=== PATIENT | male | born 1940 | race Caucasian/White ===

== ENCOUNTER 2019-10-03 13:41 | Emergency (ER) | payer OTHER ==
[~2019-10-03] VITALS: Ht 182.9 cm; Wt 99.8 kg
[~2019-10-03 13:41] MED LIST: CEPH500 PO; CHOL10002; GABA300 PO; Glimepiride4 MG PO; INSDET100 SC; INSU100I6; INSULANPEN SC; LEVEMIR FL100 UNIT/1 SC; LIRA0.6P SC; Lisinopril2.5 MG; Lisinopril2.5 MG PO; PRAV20 PO
[2019-10-03] MEDS ORDERED: ALLO100 PO (13:52)
[2019-10-03] MEDS ORDERED: VITAMIN D-32000 UNIT PO (13:53)
[2019-10-03] MEDS ORDERED: GABA300 PO (13:53)
[2019-10-03] MEDS ORDERED: INSULIN AS100 UNIT/2 SC ×3 (13:54→13:57)
[2019-10-03] MEDS ORDERED: BASAGLAR K100 UNIT/1 SC (13:57)
[2019-10-03] MEDS ORDERED: LEVSOD25 PO (13:57)
[2019-10-03] MEDS ORDERED: Lisinopril2.5 MG PO (14:00)
[2019-10-03] MEDS ORDERED: PRAV20 PO (14:01)
[2019-10-03] MEDS ORDERED: [UNRECOGNIZED DRUG - OTHER] TOP (15:24)
== END 2019-10-03 17:09 | disposition home or self-care (01) ==
LOC: ER 13:41
DX: L89.152 Pressure ulcer of sacral region, stage 2 (principal); I12.9 Hypertensive chronic kidney disease with stage 1 through stage 4 chronic kidney disease, or unspecified chronic kidney disease; E11.22 Type 2 diabetes mellitus with diabetic chronic kidney disease; N18.4 Chronic kidney disease, stage 4 (severe); E11.40 Type 2 diabetes mellitus with diabetic neuropathy, unspecified; Z79.899 Other long term (current) drug therapy; Z79.4 Long term (current) use of insulin; Z87.891 Personal history of nicotine dependence
CPT/HCPCS: 72192; 99284-25

== ENCOUNTER 2019-10-12 00:09 | Day surgery (SDC) | payer OTHER ==
[~2019-10-12 00:09] MED LIST changes: +ALLO100 PO; +BASAGLAR K100 UNIT/1 SC; +INSULIN AS100 UNIT/2 SC; +LEVSOD25 PO; +VITAMIN D-32000 UNIT PO; +[UNRECOGNIZED DRUG - OTHER] TOP
== END 2019-10-12 22:44 | disposition home or self-care (01) ==
DX: L89.154 Pressure ulcer of sacral region, stage 4 (principal); L89.892 Pressure ulcer of other site, stage 2; E11.22 Type 2 diabetes mellitus with diabetic chronic kidney disease; E11.40 Type 2 diabetes mellitus with diabetic neuropathy, unspecified; I12.9 Hypertensive chronic kidney disease with stage 1 through stage 4 chronic kidney disease, or unspecified chronic kidney disease; E78.5 Hyperlipidemia, unspecified; N18.4 Chronic kidney disease, stage 4 (severe); Z79.4 Long term (current) use of insulin; Z88.8 Allergy status to other drugs, medicaments and biological substances; Z87.891 Personal history of nicotine dependence

== ENCOUNTER 2019-10-19 00:21 | Day surgery (SDC) | payer OTHER | END 2019-10-19 22:43 | disposition home or self-care (01) | LOC: WOUND 00:21 | DX: E11.622 Type 2 diabetes mellitus with other skin ulcer (principal); L89.154 Pressure ulcer of sacral region, stage 4; L89.892 Pressure ulcer of other site, stage 2; L98.499 Non-pressure chronic ulcer of skin of other sites with unspecified severity; E11.40 Type 2 diabetes mellitus with diabetic neuropathy, unspecified; E11.22 Type 2 diabetes mellitus with diabetic chronic kidney disease; I12.9 Hypertensive chronic kidney disease with stage 1 through stage 4 chronic kidney disease, or unspecified chronic kidney disease; N18.9 Chronic kidney disease, unspecified; E78.5 Hyperlipidemia, unspecified; Z79.4 Long term (current) use of insulin; Z79.899 Other long term (current) drug therapy | CPT/HCPCS: 87071; 87075; 87076; 87185; 87205 ==

== ENCOUNTER 2019-10-26 00:18 | Day surgery (SDC) | payer OTHER | END 2019-10-26 22:53 | disposition home or self-care (01) | LOC: WOUND 00:18 | DX: E11.622 Type 2 diabetes mellitus with other skin ulcer (principal); L89.154 Pressure ulcer of sacral region, stage 4; L89.892 Pressure ulcer of other site, stage 2; I12.0 Hypertensive chronic kidney disease with stage 5 chronic kidney disease or end stage renal disease; E11.22 Type 2 diabetes mellitus with diabetic chronic kidney disease; N18.9 Chronic kidney disease, unspecified; E78.5 Hyperlipidemia, unspecified; E11.40 Type 2 diabetes mellitus with diabetic neuropathy, unspecified; Z79.4 Long term (current) use of insulin; Z79.899 Other long term (current) drug therapy ==

== ENCOUNTER 2019-11-02 00:17 | Day surgery (SDC) | payer OTHER | END 2019-11-02 22:47 | disposition home or self-care (01) | LOC: WOUND 00:17 | DX: E11.622 Type 2 diabetes mellitus with other skin ulcer (principal); L89.154 Pressure ulcer of sacral region, stage 4; L89.892 Pressure ulcer of other site, stage 2; I12.9 Hypertensive chronic kidney disease with stage 1 through stage 4 chronic kidney disease, or unspecified chronic kidney disease; E11.22 Type 2 diabetes mellitus with diabetic chronic kidney disease; N18.9 Chronic kidney disease, unspecified; E78.5 Hyperlipidemia, unspecified | CPT/HCPCS: G0463 ==

== ENCOUNTER 2019-11-09 00:37 | Day surgery (SDC) | payer OTHER | END 2019-11-09 23:14 | disposition home or self-care (01) | LOC: WOUND 00:37 | DX: E11.622 Type 2 diabetes mellitus with other skin ulcer (principal); L89.154 Pressure ulcer of sacral region, stage 4; L89.892 Pressure ulcer of other site, stage 2; I12.9 Hypertensive chronic kidney disease with stage 1 through stage 4 chronic kidney disease, or unspecified chronic kidney disease; N18.9 Chronic kidney disease, unspecified; E11.22 Type 2 diabetes mellitus with diabetic chronic kidney disease; E78.5 Hyperlipidemia, unspecified; N31.9 Neuromuscular dysfunction of bladder, unspecified ==

== ENCOUNTER 2019-11-16 00:08 | Day surgery (SDC) | payer OTHER | END 2019-11-16 23:01 | disposition home or self-care (01) | LOC: WOUND 00:08 | DX: L89.154 Pressure ulcer of sacral region, stage 4 (principal); L89.892 Pressure ulcer of other site, stage 2; E11.622 Type 2 diabetes mellitus with other skin ulcer; E78.5 Hyperlipidemia, unspecified; I12.0 Hypertensive chronic kidney disease with stage 5 chronic kidney disease or end stage renal disease; N18.6 End stage renal disease; E11.22 Type 2 diabetes mellitus with diabetic chronic kidney disease ==

== ENCOUNTER 2020-01-11 00:25 | Day surgery (SDC) | payer OTHER | END 2020-01-11 22:39 | disposition home or self-care (01) | LOC: WOUND 00:25 | DX: L89.154 Pressure ulcer of sacral region, stage 4 (principal); E11.622 Type 2 diabetes mellitus with other skin ulcer; L98.499 Non-pressure chronic ulcer of skin of other sites with unspecified severity; Z79.4 Long term (current) use of insulin ==

== ENCOUNTER 2020-01-13 00:11 | Day surgery (SDC) | payer OTHER | END 2020-01-13 22:48 | disposition home or self-care (01) | LOC: WOUND 00:11 | DX: L89.154 Pressure ulcer of sacral region, stage 4 (principal); E11.622 Type 2 diabetes mellitus with other skin ulcer ==

== ENCOUNTER 2020-01-25 00:34 | Day surgery (SDC) | payer OTHER | END 2020-01-25 23:21 | disposition home or self-care (01) | LOC: WOUND 00:34 | DX: L89.154 Pressure ulcer of sacral region, stage 4 (principal); E11.622 Type 2 diabetes mellitus with other skin ulcer; E11.40 Type 2 diabetes mellitus with diabetic neuropathy, unspecified; E11.22 Type 2 diabetes mellitus with diabetic chronic kidney disease; I12.9 Hypertensive chronic kidney disease with stage 1 through stage 4 chronic kidney disease, or unspecified chronic kidney disease; E78.5 Hyperlipidemia, unspecified; Z79.4 Long term (current) use of insulin; Z79.899 Other long term (current) drug therapy ==

== ENCOUNTER 2020-02-01 00:39 | Day surgery (SDC) | payer OTHER | END 2020-02-01 22:42 | disposition home or self-care (01) | LOC: WOUND 00:39 | DX: L89.154 Pressure ulcer of sacral region, stage 4 (principal); E11.622 Type 2 diabetes mellitus with other skin ulcer; E11.22 Type 2 diabetes mellitus with diabetic chronic kidney disease; E11.40 Type 2 diabetes mellitus with diabetic neuropathy, unspecified; I12.9 Hypertensive chronic kidney disease with stage 1 through stage 4 chronic kidney disease, or unspecified chronic kidney disease; N18.9 Chronic kidney disease, unspecified; E78.5 Hyperlipidemia, unspecified; Z79.4 Long term (current) use of insulin; L98.499 Non-pressure chronic ulcer of skin of other sites with unspecified severity; Z79.899 Other long term (current) drug therapy | CPT/HCPCS: 87071; 87075; 87205 ==

== ENCOUNTER 2020-02-10 00:25 | Day surgery (SDC) | payer OTHER | END 2020-02-10 22:41 | disposition home or self-care (01) | LOC: WOUND 00:25 | DX: L89.154 Pressure ulcer of sacral region, stage 4 (principal); E11.622 Type 2 diabetes mellitus with other skin ulcer; L98.499 Non-pressure chronic ulcer of skin of other sites with unspecified severity; E11.40 Type 2 diabetes mellitus with diabetic neuropathy, unspecified; E11.22 Type 2 diabetes mellitus with diabetic chronic kidney disease; I12.9 Hypertensive chronic kidney disease with stage 1 through stage 4 chronic kidney disease, or unspecified chronic kidney disease; E78.5 Hyperlipidemia, unspecified; N18.9 Chronic kidney disease, unspecified; Z79.4 Long term (current) use of insulin; Z79.899 Other long term (current) drug therapy ==

== ENCOUNTER 2020-02-27 00:22 | Day surgery (SDC) | payer OTHER ==
[2020-02-27 10:59] LABS: BASOPHILS ABSOLUTE AUTO 0.04 K/mm3 (0.00-0.23); BASOPHILS PERCENT AUTO 0 % (0-2); EOSINOPHILS ABSOLUTE AUTO 0.16 K/mm3 (0.00-0.68); EOSINOPHILS PERCENT AUTO 2 % (0-6); Hematocrit 37.7 % (37.0-53.0); Hemoglobin 12.2 g/dL (13.5-17.5); IMMATURE GRAN ABSOLUTE AUTO 0.01 K/mm3 (0.00-0.10); IMMATURE GRAN PERCENT AUTO 0 % (0-1); LYMPHOCYTES ABSOLUTE AUTO 1.43 K/mm3 (0.84-5.20); LYMPHOCYTES PERCENT AUTO 16 % (21-46); MONOCYTES ABSOLUTE AUTO 0.72 K/mm3 (0.16-1.47); MONOCYTES PERCENT AUTO 8 % (4-13); Mean Corpuscular HGB 31.3 pg (26.0-34.0); Mean Corpuscular HGB Conc 32.4 g/dL (31.5-36.5); Mean Corpuscular Volume 97 fL (80-100); Mean Platelet Volume 9.3 fL (9.1-12.4); NEUTROPHILS ABSOLUTE AUTO 6.86 K/mm3 (1.96-9.15); NEUTROPHILS PERCENT AUTO 75 % (41-73); Platelet Count 297 K/mm3 (150-400); RDW Coefficient Variation 12.1 % (11.7-14.2); White Blood Cell Count 9.22 K/mm3 (4.00-11.30)
[2020-02-27 11:26] LABS: Albumin, Blood 2.9 g/dL (3.4-5.0); Prealbumin, Blood 15.4 mg/dL (20.0-40.0)
== END 2020-02-27 22:48 | disposition home or self-care (01) ==
LOC: WOUND 00:22
PROVIDERS: Surgery
DX: L89.154 Pressure ulcer of sacral region, stage 4 (principal); E11.622 Type 2 diabetes mellitus with other skin ulcer; E11.40 Type 2 diabetes mellitus with diabetic neuropathy, unspecified; E11.22 Type 2 diabetes mellitus with diabetic chronic kidney disease; I12.9 Hypertensive chronic kidney disease with stage 1 through stage 4 chronic kidney disease, or unspecified chronic kidney disease; L98.499 Non-pressure chronic ulcer of skin of other sites with unspecified severity; N18.9 Chronic kidney disease, unspecified; E78.5 Hyperlipidemia, unspecified; Z79.4 Long term (current) use of insulin; Z79.899 Other long term (current) drug therapy
CPT/HCPCS: 82040; 84134; 85025

== ENCOUNTER 2020-03-05 00:26 | Day surgery (SDC) | payer OTHER | END 2020-03-05 23:00 | disposition home or self-care (01) | LOC: WOUND 00:26 | DX: I96 Gangrene, not elsewhere classified (principal); L89.154 Pressure ulcer of sacral region, stage 4; L89.312 Pressure ulcer of right buttock, stage 2; E11.52 Type 2 diabetes mellitus with diabetic peripheral angiopathy with gangrene; I12.0 Hypertensive chronic kidney disease with stage 5 chronic kidney disease or end stage renal disease; E11.22 Type 2 diabetes mellitus with diabetic chronic kidney disease; N18.6 End stage renal disease; E11.40 Type 2 diabetes mellitus with diabetic neuropathy, unspecified; E78.5 Hyperlipidemia, unspecified; M10.9 Gout, unspecified; N31.9 Neuromuscular dysfunction of bladder, unspecified; E11.36 Type 2 diabetes mellitus with diabetic cataract; H26.9 Unspecified cataract; Z79.4 Long term (current) use of insulin; Z79.899 Other long term (current) drug therapy ==

== ENCOUNTER 2020-03-10 01:32 | Inpatient (IN) | payer OTHER, MEDICARE ==
[~2020-03-10] VITALS: Ht 182.9 cm; Wt 104.3 kg
[2020-03-10] MEDS ORDERED: Norco 5-325 Ta1 EACH PO (01:50)
[2020-03-10] MEDS ORDERED: NOVOLOG FL100 UNIT/3 (01:51)
[2020-03-10 02:06] LABS: BASOPHILS ABSOLUTE AUTO 0.03 K/mm3 (0.00-0.23); BASOPHILS PERCENT AUTO 0 % (0-2); EOSINOPHILS PERCENT AUTO 0 % (0-6); Hemoglobin 11.4 g/dL (13.5-17.5); IMMATURE GRAN ABSOLUTE AUTO 0.11 K/mm3 (0.00-0.10); IMMATURE GRAN PERCENT AUTO 1 % (0-1); LYMPHOCYTES ABSOLUTE AUTO 0.43 K/mm3 (0.84-5.20); LYMPHOCYTES PERCENT AUTO 3 % (21-46); MONOCYTES ABSOLUTE AUTO 0.85 K/mm3 (0.16-1.47); MONOCYTES PERCENT AUTO 6 % (4-13); Mean Corpuscular HGB 30.6 pg (26.0-34.0); Mean Corpuscular HGB Conc 32.6 g/dL (31.5-36.5); Mean Corpuscular Volume 94 fL (80-100); Mean Platelet Volume 9.6 fL (9.1-12.4); NEUTROPHILS ABSOLUTE AUTO 11.76 K/mm3 (1.96-9.15); NEUTROPHILS PERCENT AUTO 89 % (41-73); Platelet Count 288 K/mm3 (150-400); RDW Coefficient Variation 12.4 % (11.7-14.2); Red Blood Cell Count 3.73 M/mm3 (4.30-5.90); White Blood Cell Count 13.18 K/mm3 (4.00-11.30)
[2020-03-10 02:12] LABS: Alanine Aminotransfer (ALT/SGP 64 U/L (12-78); Albumin, Blood 2.7 g/dL (3.4-5.0); Albumin/Globulin Ratio 0.4 (0.8-1.8); Alk Phos 130 U/L (50-136); Anion Gap 8 mmol/L (6-16); Aspartate Aminotrans (AST/SGOT 67 U/L (12-37); Bilirubin, Total 0.5 mg/dL (0.1-1.0); Blood Urea Nitrogen 71 mg/dL (8-24); Bun/Creatinine Ratio 36.4 (12.0-20.0); CO2, Blood 22 mmol/L (21-32); Chloride, Blood 101 mmol/L (98-108); Creatinine, Blood 1.95 mg/dL (0.60-1.20); Globulin, Blood 6.3 g/dL (2.2-4.0); Glomerular Filtration Rate 36 (60-); Glucose, Blood 216 mg/dL (70-99); Potassium, Blood 4.8 mmol/L (3.5-5.5); Sodium, Blood 131 mmol/L (136-145)
[2020-03-10 02:47] LABS: Source, Urine Catheter
[2020-03-10 02:58] LABS: Bilirubin, Urine Neg (Neg); Blood, Urine 2+ (Neg); Glucose Qualitative, Urine Neg (Neg); Ketones, Urine Neg (Neg); Leukocyte Esterase, Urine 2+ (Neg); Nitrite, Urine Neg (Neg); Protein, Urine 1+ (Neg); Specific Gravity, Urine 1.015 (1.003-1.022); Urobilinogen, Urine NORM (Normal)
[2020-03-10 03:06] LABS: Appearance, Urine Hazy (Clear); Color, Urine Yellow (P-Yellow)
[2020-03-10 03:07] LABS: Bacteria Many /hpf; Red Blood Cells, Urine Rare /hpf (0-2); Squamous Epithelial Cells Rare /hpf (Few); White Blood Cells, Urine 50-100 /hpf (0-5)
[2020-03-10 03:50] LABS: CPK Creatine Kinase 77 U/L (39-308)
[2020-03-10 03:51] LABS: Creatine Kinase MB <1.0 ng/mL (0.0-3.6); Creatine Kinase MB Index Unable to Calculate (0.0-4.0)
[2020-03-10 11:40] LABS: Adenovirus Not Detected (NOT DETECT); Bordetella pertussis Not Detected (NOT DETECT); Chlamydophila pneumoniae Not Detected (NOT DETECT); Coronavirus 229E Not Detected (NOT DETECT); Coronavirus HKU1 Not Detected (NOT DETECT); Coronavirus NL63 Not Detected (NOT DETECT); Coronavirus OC43 Not Detected (NOT DETECT); Human Metapneumovirus Not Detected (NOT DETECT); Human Rhinovirus/Enterovirus Not Detected (NOT DETECT); Influenza A/2009-H1 Not Detected (NOT DETECT); Influenza A/H1 Not Detected (NOT DETECT); Influenza A/H3 Not Detected (NOT DETECT); Influenza B Not Detected (NOT DETECT); Mycoplasma pneumoniae Not Detected (NOT DETECT); Parainfluenza Virus 1 Not Detected (NOT DETECT); Parainfluenza Virus 2 Not Detected (NOT DETECT); Parainfluenza Virus 3 Not Detected (NOT DETECT); Parainfluenza Virus 4 Not Detected (NOT DETECT); Respiratory Syncytial Virus Not Detected (NOT DETECT); SARS-Cov-2 (COVID-19), BioFire Not Detected (NOT DETECT)
--- NOTE | 2020-03-11 03:31 | NUR ---
SHIFT SUMMARY: 80 Y/O MALE RESTED COMFORTABLY ALL SHIFT; PT C/O PAIN TO COCCYX RATED 7/10 WITH NORCO 5/325MG PO GIVEN WITH RELIEF FELT; COCCYX WOUND DRESSING DRY AND INTACT; ALERT AND ORIENTED X 3; PT ABLE TO PERFORM SELF CATHETERIZATIONS WITHOUT DIFFICUTLY; DENIES NAUSEA; BED ALARM APPLIED FOR SAFETY, BED LOW POSITION WITH CALL LIGHT AT SIDE.
[2020-03-11 05:35] LABS: BASOPHILS ABSOLUTE AUTO 0.03 K/mm3 (0.00-0.23); BASOPHILS PERCENT AUTO 0 % (0-2); EOSINOPHILS ABSOLUTE AUTO 0.17 K/mm3 (0.00-0.68); EOSINOPHILS PERCENT AUTO 2 % (0-6); Hematocrit 30.7 % (37.0-53.0); Hemoglobin 9.9 g/dL (13.5-17.5); IMMATURE GRAN ABSOLUTE AUTO 0.04 K/mm3 (0.00-0.10); IMMATURE GRAN PERCENT AUTO 1 % (0-1); LYMPHOCYTES ABSOLUTE AUTO 1.37 K/mm3 (0.84-5.20); LYMPHOCYTES PERCENT AUTO 18 % (21-46); MONOCYTES ABSOLUTE AUTO 0.99 K/mm3 (0.16-1.47); MONOCYTES PERCENT AUTO 13 % (4-13); Mean Corpuscular HGB 30.7 pg (26.0-34.0); Mean Corpuscular HGB Conc 32.2 g/dL (31.5-36.5); Mean Corpuscular Volume 95 fL (80-100); Mean Platelet Volume 9.6 fL (9.1-12.4); NEUTROPHILS ABSOLUTE AUTO 4.85 K/mm3 (1.96-9.15); NEUTROPHILS PERCENT AUTO 65 % (41-73); Platelet Count 234 K/mm3 (150-400); RDW Coefficient Variation 12.4 % (11.7-14.2); RDW Standard Deviation 43.6 fL (35.1-46.3); Red Blood Cell Count 3.22 M/mm3 (4.30-5.90); White Blood Cell Count 7.45 K/mm3 (4.00-11.30)
[2020-03-11 05:57] LABS: Albumin, Blood 2.3 g/dL (3.4-5.0); Albumin/Globulin Ratio 0.4 (0.8-1.8); Bilirubin, Total 0.4 mg/dL (0.1-1.0); Calcium, Blood 8.7 mg/dL (8.5-10.1); Creatinine, Blood 1.73 mg/dL (0.60-1.20); Globulin, Blood 5.5 g/dL (2.2-4.0); Potassium, Blood 4.6 mmol/L (3.5-5.5); Total Protein, Blood 7.8 g/dL (6.4-8.2)
--- NOTE | 2020-03-11 08:29 | NUR ---
REPOSITIONED FOWLERS FOR BREAKFAST, VITALS TAKEN, CALL LIGHT IN REACH.
--- NOTE | 2020-03-11 16:17 | NUR ---
SHIFT SUMMARY PATIENT MEDICATED X2 FOR PAIN THIS SHIFT. DENIES NAUSEA AND SHORTNESS OF BREATH. PATIENT REPOSITIONED TWO ASSIST IN BED. POOR PO INTAKE. PATIENT SELF CATHETERIZES TID. WOUND CARE COMPLETED. AT BEDSIDE THIS AFTERNOON.
--- NOTE | 2020-03-12 04:20 | NUR ---
SHIFT SUMMARY: PT IS ALERT AND ORIENTED. PT IS CALM AND COOPERATIVE WITH CARE. PT IS CHAIRBOUND AT BASELINE, NOT OUT OF BED OVERNIGHT. PT CALLS APPROPRIATELY. PT SELF CATHS FOR RETENTION R/T NEUROGENIC BLADDER, ASSISTANCE WHEN NEEDED. PT REPORTS PAIN R/T CHRONIC SACRAL WOUND, MEDICATING PER EMAR. PT DENIES NAUSEA, VOMITING, AND SOB. BED IN LOW POSITION, CALL LIGHT WITHIN REACH. WILL CONTINUE TO MONITOR.
--- NOTE | 2020-03-12 17:09 | NUR ---
SHIFT SUMMARY. A&OX4, CHAIRBOUND AT BASELINE. PER PHYSICAL THERAPY, PT IS NOT AT BASELINE AND SNF IS RECOMMENDED, AT BEDSIDE AT TIME OF EVAL. PT CONTINUES WITH CHRONIC PAIN R/T CHRONIC COCCYX WOUND, PAIN MANAGED WELL WITH CURRENT ORDERS. WOUND CARE TO STAGE IV COCCYX WOUND COMPLETED. PT DENIES SOB, N/V. NO NEW CHANGES OR CONCERNS.
[2020-03-13] MEDS ORDERED: CEFU250T47 PO (14:06)
--- NOTE | 2020-03-13 14:40 | NUR ---
PT DISCHARGED AT 1430 WITH TO TRANSPORT. PT HAD PERSONAL SCOOTER TO RIDE OUT TO CAR WITH. PT WAS AOX4 AND COOPERATIVE OF ALL CARE. PT WAS ABLE TO GET INTO SCOOTER WITH PHYSICAL THERAPY A STAND BY ASSIST. PT HAS BEEN CONTENT AND CALLED APPROPRIATELY. NO DISTRESS NOTED. ALL PAPER WORK REVIEWED AND EDUCATIONAL MATERIAL SENT WITH PT. PERSONAL BELONGINGS COLLECTED BY PRIORT TO DISCHARGE.
--- NOTE | 2020-03-14 04:53 | NUR ---
late entry for 03/13/2020 entered note in wrong chart. 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 Photo doc of wound completed with wound care. Cleansed & dressed as per wound care orders. PT is & does dressing changes BID & PT sees wounfd care clinic at [facility] 1 time weekly x 18 weeks. PT has been nonambulatory baseline but had been able to stand pivot prior to hospitalization. Has PT OT eval to assess is PT able to safely DC home with Wifes assist. PT has painful spasms to bilat LE & neuropathy. Medicated with 1 norco 5/325 mg tab with mild helpful effect. On neurontin for neuropathy.
== END 2020-03-13 14:35 | disposition home health service (06) | DRG 698 ==
LOC: ER 01:32 → MEDS 05:32
PROVIDERS: Student in an Organized Health Care Education/Training Program; ADMIT Internal Medicine
DX: T83.518A Infection and inflammatory reaction due to other urinary catheter, initial encounter (principal); L89.153 Pressure ulcer of sacral region, stage 3; A41.51 Sepsis due to Escherichia coli [E. coli]; N12 Tubulo-interstitial nephritis, not specified as acute or chronic; N18.4 Chronic kidney disease, stage 4 (severe); I12.9 Hypertensive chronic kidney disease with stage 1 through stage 4 chronic kidney disease, or unspecified chronic kidney disease; E11.22 Type 2 diabetes mellitus with diabetic chronic kidney disease; E78.5 Hyperlipidemia, unspecified; G83.9 Paralytic syndrome, unspecified; L40.9 Psoriasis, unspecified; N31.9 Neuromuscular dysfunction of bladder, unspecified; Z87.891 Personal history of nicotine dependence; E11.42 Type 2 diabetes mellitus with diabetic polyneuropathy
CPT/HCPCS: 0202U; 36415; 71045; 80053; 81001; 82550; 82553; 82947; 83605; 85025; 87040; 87077; 87086; 87186; 93005; 93010; 96365; 97110; 97161; 97166; 97535; 99285-25; A9270; A9270-GY; J0696; J1650; J7030

== ENCOUNTER 2020-03-19 00:44 | Day surgery (SDC) | payer OTHER, MEDICARE ==
[~2020-03-19 00:44] MED LIST changes: +CEFU250T47 PO; +NOVOLOG FL100 UNIT/3; +Norco 5-325 Ta1 EACH PO
== END 2020-03-19 22:41 | disposition home or self-care (01) ==
LOC: WOUND 00:44
DX: L89.154 Pressure ulcer of sacral region, stage 4 (principal); E11.40 Type 2 diabetes mellitus with diabetic neuropathy, unspecified; E11.22 Type 2 diabetes mellitus with diabetic chronic kidney disease; I12.0 Hypertensive chronic kidney disease with stage 5 chronic kidney disease or end stage renal disease; N18.6 End stage renal disease; E78.5 Hyperlipidemia, unspecified; Z87.891 Personal history of nicotine dependence; L89.312 Pressure ulcer of right buttock, stage 2; Z79.4 Long term (current) use of insulin; Z79.899 Other long term (current) drug therapy

== ENCOUNTER 2020-03-26 00:19 | Day surgery (SDC) | payer OTHER, MEDICARE | END 2020-03-26 12:00 | disposition home or self-care (01) | LOC: WOUND 00:19 | DX: I96 Gangrene, not elsewhere classified (principal); L89.154 Pressure ulcer of sacral region, stage 4; E11.52 Type 2 diabetes mellitus with diabetic peripheral angiopathy with gangrene; E11.69 Type 2 diabetes mellitus with other specified complication; M86.18 Other acute osteomyelitis, other site; E11.40 Type 2 diabetes mellitus with diabetic neuropathy, unspecified; E11.36 Type 2 diabetes mellitus with diabetic cataract; H26.9 Unspecified cataract; I12.0 Hypertensive chronic kidney disease with stage 5 chronic kidney disease or end stage renal disease; E11.22 Type 2 diabetes mellitus with diabetic chronic kidney disease; N18.6 End stage renal disease; M10.9 Gout, unspecified; E78.5 Hyperlipidemia, unspecified; N31.9 Neuromuscular dysfunction of bladder, unspecified; Z79.4 Long term (current) use of insulin; Z79.2 Long term (current) use of antibiotics; Z79.899 Other long term (current) drug therapy | CPT/HCPCS: 87071; 87075; 87205; 88305; 88311 ==

== ENCOUNTER 2020-04-02 00:55 | Day surgery (SDC) | payer OTHER, MEDICARE | END 2020-04-02 23:47 | disposition home or self-care (01) | LOC: WOUND 00:55 | DX: I96 Gangrene, not elsewhere classified (principal); L89.154 Pressure ulcer of sacral region, stage 4; E11.52 Type 2 diabetes mellitus with diabetic peripheral angiopathy with gangrene; E11.69 Type 2 diabetes mellitus with other specified complication; M46.28 Osteomyelitis of vertebra, sacral and sacrococcygeal region; E11.36 Type 2 diabetes mellitus with diabetic cataract; H26.9 Unspecified cataract; I12.0 Hypertensive chronic kidney disease with stage 5 chronic kidney disease or end stage renal disease; E11.22 Type 2 diabetes mellitus with diabetic chronic kidney disease; N18.6 End stage renal disease; E11.40 Type 2 diabetes mellitus with diabetic neuropathy, unspecified; M10.9 Gout, unspecified; E78.5 Hyperlipidemia, unspecified; N31.9 Neuromuscular dysfunction of bladder, unspecified; Z79.2 Long term (current) use of antibiotics; Z79.4 Long term (current) use of insulin; Z79.899 Other long term (current) drug therapy | CPT/HCPCS: G0463 ==

== ENCOUNTER 2020-04-09 00:36 | Day surgery (SDC) | payer OTHER, MEDICARE | END 2020-04-09 23:20 | disposition home or self-care (01) | LOC: WOUND 00:36 | DX: M46.28 Osteomyelitis of vertebra, sacral and sacrococcygeal region (principal); L89.154 Pressure ulcer of sacral region, stage 4; E11.622 Type 2 diabetes mellitus with other skin ulcer; E11.40 Type 2 diabetes mellitus with diabetic neuropathy, unspecified; E11.22 Type 2 diabetes mellitus with diabetic chronic kidney disease; I12.9 Hypertensive chronic kidney disease with stage 1 through stage 4 chronic kidney disease, or unspecified chronic kidney disease; E78.5 Hyperlipidemia, unspecified; Z79.4 Long term (current) use of insulin; Z79.899 Other long term (current) drug therapy ==

== ENCOUNTER 2020-04-30 01:31 | Day surgery (SDC) | payer OTHER, MEDICARE | END 2020-04-30 22:48 | disposition home or self-care (01) | LOC: WOUND 01:31 | DX: M46.28 Osteomyelitis of vertebra, sacral and sacrococcygeal region (principal); L89.154 Pressure ulcer of sacral region, stage 4; E11.622 Type 2 diabetes mellitus with other skin ulcer; E11.40 Type 2 diabetes mellitus with diabetic neuropathy, unspecified; E11.22 Type 2 diabetes mellitus with diabetic chronic kidney disease; I12.9 Hypertensive chronic kidney disease with stage 1 through stage 4 chronic kidney disease, or unspecified chronic kidney disease; N18.9 Chronic kidney disease, unspecified; E78.5 Hyperlipidemia, unspecified; Z79.4 Long term (current) use of insulin; Z79.899 Other long term (current) drug therapy ==

== ENCOUNTER 2020-05-07 00:30 | Day surgery (SDC) | payer OTHER, MEDICARE ==
[~2020-05-07 00:30] MED LIST changes: -NOVOLOG FL100 UNIT/3; +NOVOLOG FL100 UNIT/3 SC
== END 2020-05-07 22:54 | disposition home or self-care (01) ==
LOC: WOUND 00:30
DX: M46.28 Osteomyelitis of vertebra, sacral and sacrococcygeal region (principal); L89.154 Pressure ulcer of sacral region, stage 4; E11.622 Type 2 diabetes mellitus with other skin ulcer; Z79.4 Long term (current) use of insulin; E11.40 Type 2 diabetes mellitus with diabetic neuropathy, unspecified; E11.22 Type 2 diabetes mellitus with diabetic chronic kidney disease; I12.9 Hypertensive chronic kidney disease with stage 1 through stage 4 chronic kidney disease, or unspecified chronic kidney disease; N18.9 Chronic kidney disease, unspecified; E78.5 Hyperlipidemia, unspecified; Z79.899 Other long term (current) drug therapy
CPT/HCPCS: G0463

== ENCOUNTER 2020-05-07 13:50 | Inpatient (IN) | payer OTHER, MEDICARE ==
[~2020-05-07] VITALS: Ht 182.9 cm; Wt 98.6 kg
[~2020-05-07 13:50] MED LIST changes: -VITAMIN D-32000 UNIT PO; +Vitamin D2000 UNIT PO
[2020-05-07 14:24] LABS: BASOPHILS ABSOLUTE AUTO 0.04 K/mm3 (0.00-0.23); BASOPHILS PERCENT AUTO 0 % (0-2); EOSINOPHILS ABSOLUTE AUTO 0.09 K/mm3 (0.00-0.68); EOSINOPHILS PERCENT AUTO 1 % (0-6); Hematocrit 36.6 % (37.0-53.0); Hemoglobin 11.6 g/dL (13.5-17.5); IMMATURE GRAN ABSOLUTE AUTO 0.08 K/mm3 (0.00-0.10); IMMATURE GRAN PERCENT AUTO 1 % (0-1); LYMPHOCYTES ABSOLUTE AUTO 1.07 K/mm3 (0.84-5.20); LYMPHOCYTES PERCENT AUTO 6 % (21-46); MONOCYTES ABSOLUTE AUTO 1.25 K/mm3 (0.16-1.47); MONOCYTES PERCENT AUTO 7 % (4-13); Mean Corpuscular HGB 29.9 pg (26.0-34.0); Mean Corpuscular HGB Conc 31.7 g/dL (31.5-36.5); Mean Corpuscular Volume 94 fL (80-100); Mean Platelet Volume 9.3 fL (9.1-12.4); NEUTROPHILS ABSOLUTE AUTO 15.18 K/mm3 (1.96-9.15); NEUTROPHILS PERCENT AUTO 86 % (41-73); Platelet Count 425 K/mm3 (150-400); RDW Coefficient Variation 13.2 % (11.7-14.2); RDW Standard Deviation 45.4 fL (35.1-46.3); Red Blood Cell Count 3.88 M/mm3 (4.30-5.90); White Blood Cell Count 17.71 K/mm3 (4.00-11.30)
[2020-05-07 14:57] LABS: Albumin, Blood 2.5 g/dL (3.4-5.0); Albumin/Globulin Ratio 0.4 (0.8-1.8); Bilirubin, Total 0.6 mg/dL (0.1-1.0); Bun/Creatinine Ratio 39.7 (12.0-20.0); Calcium, Blood 9.6 mg/dL (8.5-10.1); Creatinine, Blood 1.74 mg/dL (0.60-1.20); Globulin, Blood 6.9 g/dL (2.2-4.0); Potassium, Blood 4.1 mmol/L (3.5-5.5); Total Protein, Blood 9.4 g/dL (6.4-8.2)
[2020-05-08 04:10] LABS: Hematocrit 32.4 % (37.0-53.0); Hemoglobin 10.2 g/dL (13.5-17.5); Mean Corpuscular HGB 29.9 pg (26.0-34.0); Mean Corpuscular HGB Conc 31.5 g/dL (31.5-36.5); Mean Corpuscular Volume 95 fL (80-100); Mean Platelet Volume 9.7 fL (9.1-12.4); Platelet Count 322 K/mm3 (150-400); RDW Coefficient Variation 13.3 % (11.7-14.2); RDW Standard Deviation 46.2 fL (35.1-46.3); Red Blood Cell Count 3.41 M/mm3 (4.30-5.90); White Blood Cell Count 14.65 K/mm3 (4.00-11.30)
[2020-05-08 04:30] LABS: Calcium, Blood 9.3 mg/dL (8.5-10.1); Creatinine, Blood 1.87 mg/dL (0.60-1.20)
--- NOTE | 2020-05-08 13:00 | NUR ---
PT ALERT ORIENTED X4; CALLS APPROPRIATELY. PT IS BEDBOUND AT BASELINE DUE TO NEUPATHY FOR A YEAR AGO NOWW. PT IS ADA DIET; AC/HS. PT USES SCOOTER AT HOME AND HE ALSO DO HIS SELF CATH FOR NEUROGENIC BLADDER. PT USES BEDPAN AT BASELINE. ON RA AND NO TELE. PT HAS STAGE 4 ULCER ON COCCYX AND R/L GLUTEAL FOLD; WOUND DRESSING ORDERED- SEE PIC IN CHART. PT ALSO HAS FOUL SMELLING ODOR OF HIS WOUND WHEN HE CAME IN. PT HAS CHRONIC PAIN OF HIS LEGS; MEDICATED PER EMAR. PT AT BEDSIDE TODAY. PLAN IS TONIGHT HE WILL BE NPO FOR DEBRIBEMENT. PT LACTIC ACID WNL, AND WBC ELEVATED. PT ALSO HAS AN EPISODES OF LOW BP; CALLED DR AND RECEIVED AN ORDER OF FLUIDS. VSS. PT HAD A BM TODAY; WHILE THE PT WAS HAVING BM; THIS NURSE HAD TO REMOVE A FECAL IMPACTION DIGITALLY; INFORMED DR AND GIVEN AN ORDER OF BOWEL CARE.
[2020-05-08 15:52] LABS: Influenza A, PCR Negative (NEGATIVE); Influenza B, PCR Negative (NEGATIVE); Resp Syncytial Virus, PCR Negative (NEGATIVE); SARS-Cov-2 (COVID-19) PCR, MMC Negative (NEGATIVE)
[2020-05-09 05:20] LABS: BASOPHILS ABSOLUTE AUTO 0.02 K/mm3 (0.00-0.23); BASOPHILS PERCENT AUTO 0 % (0-2); EOSINOPHILS PERCENT AUTO 2 % (0-6); Hematocrit 31.1 % (37.0-53.0); Hemoglobin 9.9 g/dL (13.5-17.5); IMMATURE GRAN ABSOLUTE AUTO 0.08 K/mm3 (0.00-0.10); IMMATURE GRAN PERCENT AUTO 1 % (0-1); LYMPHOCYTES ABSOLUTE AUTO 1.26 K/mm3 (0.84-5.20); LYMPHOCYTES PERCENT AUTO 10 % (21-46); MONOCYTES ABSOLUTE AUTO 0.73 K/mm3 (0.16-1.47); MONOCYTES PERCENT AUTO 6 % (4-13); Mean Corpuscular HGB 30.1 pg (26.0-34.0); Mean Corpuscular HGB Conc 31.8 g/dL (31.5-36.5); Mean Corpuscular Volume 95 fL (80-100); Mean Platelet Volume 9.4 fL (9.1-12.4); NEUTROPHILS ABSOLUTE AUTO 10.39 K/mm3 (1.96-9.15); NEUTROPHILS PERCENT AUTO 82 % (41-73); Platelet Count 334 K/mm3 (150-400); RDW Coefficient Variation 13.2 % (11.7-14.2); RDW Standard Deviation 45.3 fL (35.1-46.3); Red Blood Cell Count 3.29 M/mm3 (4.30-5.90); White Blood Cell Count 12.68 K/mm3 (4.00-11.30)
[2020-05-09 05:47] LABS: Albumin, Blood 1.8 g/dL (3.4-5.0); Albumin/Globulin Ratio 0.3 (0.8-1.8); Bilirubin, Total 0.6 mg/dL (0.1-1.0); Bun/Creatinine Ratio 36.6 (12.0-20.0); Calcium, Blood 8.8 mg/dL (8.5-10.1); Creatinine, Blood 1.91 mg/dL (0.60-1.20); Globulin, Blood 5.7 g/dL (2.2-4.0); Potassium, Blood 4.4 mmol/L (3.5-5.5); Total Protein, Blood 7.5 g/dL (6.4-8.2)
[2020-05-09] MEDS ORDERED: ALLO100 PO (06:05)
[2020-05-09] MEDS ORDERED: NOVOLOG FL100 UNIT/3 SC ×2 (06:08→06:09)
[2020-05-09] MEDS ORDERED: ACIDOPHILUS1 EAC3 PO (06:12)
[2020-05-09] MEDS ORDERED: LIDOCAINE 4% TOP (06:14)
[2020-05-09] MEDS ORDERED: Lisinopril2.5 MG PO (06:15)
[2020-05-09] MEDS ORDERED: SILVER SULFADIA TOP (06:18)
[2020-05-09] MEDS ORDERED: [UNRECOGNIZED DRUG - OTHER] TOP (06:19)
--- NOTE | 2020-05-09 07:45 | NUR ---
SHIFT SUMMARY AOX4. VSS. DENIES N/V, DYSPNEA. REPORTS 8-03/10 PAIN IN BLE RADIATING UP TO COCCYX, MEDICATED 2X c 1MG IV DILAUDID, REPORTS RELIEF. HAS BEEN NPO SINCE MIDNIGHT EXCEPT A FEW SMALL SIPS OF WATER c MEDS. PLAN IS TO HAVE I&D OF SACRAL & GLUTEAL FOLD WOUNDS TODAY. PT REFUSED DRESSING CHANGES OF WOUNDS LAST NIGHT, I DID LOOK AT THEM & THEY WERE STILL C/D/I FROM PREVIOUS SHIFT, FOUL ODOR PRESENT c CHECKING BANDAGES. PT STRAIGHT CATH'D SELF 1X LAST NIGHT & HAD 500ML OUT, HAS NEUROGENIC BLADDER. HELPED REPOSITION PT PRN, SINCE PT IS UNABLE TO MOVE BLE. CALL LIGHT IN REACH & PT ABLE TO MAKE NEEDS KNOWN.
--- NOTE | 2020-05-09 12:56 | NUR ---
INTO SDS ADMISSION STARTED TO UNIT. VSS PATIENT LOURDES AND COOPERATIVE
--- NOTE | 2020-05-09 12:57 | NUR ---
History, Chart, Medications and Allergies reviewed before start of procedure.Patient confirms NPO status and agrees with scheduled surgery.
--- NOTE | 2020-05-09 13:10 | NUR ---
WEDDING RING PLACED IN BAG AND IN CHART.
--- NOTE | 2020-05-09 13:31 | NUR ---
05/09/20 1331 Debora Duff PT ON SCHEDULED ABX.
--- NOTE | 2020-05-09 18:51 | NUR ---
SHIFT SUMMARY PT IS AOX4. PT MEDICATED FOR PAIN X3-4 THIS SHIFT. PT DENIES N/V, SOB. PT HAD I&D OF COCCYX WOUNDS TODAY AT APPROXIMATELY 1200. PT TO BE STARTED ON VANCOMYCIN PER ORDERS. VISITED TODAY AFTER PROCEDURE. PT APPETITE IS MODERATE THIS KAIDEN. PT IS IN BED, CALL LIGHT IN REACH, BED IN LOW POSITION.
[2020-05-09 20:29] LABS: Vancomycin, Random 13.2 ug/mL
[2020-05-10 05:03] LABS: BASOPHILS ABSOLUTE AUTO 0.01 K/mm3 (0.00-0.23); BASOPHILS PERCENT AUTO 0 % (0-2); EOSINOPHILS PERCENT AUTO 0 % (0-6); Hematocrit 30.8 % (37.0-53.0); Hemoglobin 9.6 g/dL (13.5-17.5); IMMATURE GRAN ABSOLUTE AUTO 0.07 K/mm3 (0.00-0.10); IMMATURE GRAN PERCENT AUTO 1 % (0-1); LYMPHOCYTES ABSOLUTE AUTO 0.77 K/mm3 (0.84-5.20); LYMPHOCYTES PERCENT AUTO 6 % (21-46); MONOCYTES PERCENT AUTO 5 % (4-13); Mean Corpuscular HGB 29.6 pg (26.0-34.0); Mean Corpuscular HGB Conc 31.2 g/dL (31.5-36.5); Mean Corpuscular Volume 95 fL (80-100); Mean Platelet Volume 9.7 fL (9.1-12.4); NEUTROPHILS ABSOLUTE AUTO 12.02 K/mm3 (1.96-9.15); NEUTROPHILS PERCENT AUTO 89 % (41-73); Platelet Count 375 K/mm3 (150-400); RDW Coefficient Variation 13.2 % (11.7-14.2); RDW Standard Deviation 45.7 fL (35.1-46.3); Red Blood Cell Count 3.24 M/mm3 (4.30-5.90); White Blood Cell Count 13.47 K/mm3 (4.00-11.30)
[2020-05-10 05:33] LABS: Bun/Creatinine Ratio 41.7 (12.0-20.0); Calcium, Blood 9.1 mg/dL (8.5-10.1); Creatinine, Blood 1.92 mg/dL (0.60-1.20)
--- NOTE | 2020-05-10 06:02 | NUR ---
SHIFT SUMMARY PT IS A 80 Y/O MALE, ADMITTED FOR SEPSIS R/T STAGE 4 PRESSURE ULCERS ON HIS COCCYX AND GLUTEAL FOLDS. PT HAD WOUNDS SURGICALLY I&D YESTERDAY. WET TO DRY DRESSING ON GLUTEAL FOLD WAS CHANGED AT HS, DUE TO BLEEDIND THROUGH THE BANDAGE PLACED BY DAY SHIFT. PT WAS MEDICATED 3X WITH PRN IV DILAUDID FOR PAIN. NO C/O NAUSEA OR SOB. VITAL SIGNS STABLE. PT SLEPT WELL THROUGH THE NIGHT. NO ACUTE CHANGES IN PT CONDITION NOTED DURING THE NIGHT. WILL CONTINUE TO MONITOR AND TREAT PER EMAR UNTIL HAND OFF TO DAY SHIFT RN.
[2020-05-10] MEDS ORDERED: SENN187 PO (14:39)
[2020-05-10] MEDS ORDERED: AMOCLA875 PO (14:39)
[2020-05-10] MEDS ORDERED: Percocet 5-3251 EACH PO (14:56)
--- NOTE | 2020-05-10 16:52 | NUR ---
PT DISCHARGED FROM THE UNIT. IV REMOVED. DISCHARGE INSTRUCTIONS REVIEWED. PT LEFT VIA WHEELCHAIR WITH . HE LEFT AT 1622
== END 2020-05-10 16:22 | disposition home or self-care (01) | DRG 853 ==
LOC: ER 13:50 → ERHOLD 20:18 → MEDS 20:18 → ERHOLD 05-08 12:47 → MEDS 05-08 12:56
PROVIDERS: Emergency Medicine; Internal Medicine; Surgery; ADMIT Internal Medicine
PROC: 0KBP0ZZ Excision of Left Hip Muscle, Open Approach (ICD-10-PCS; principal; 2020-05-09 13:00)
DX: A41.9 Sepsis, unspecified organism (principal); L89.154 Pressure ulcer of sacral region, stage 4; L89.894 Pressure ulcer of other site, stage 4; N17.9 Acute kidney failure, unspecified; N18.4 Chronic kidney disease, stage 4 (severe); M86.8X8 Other osteomyelitis, other site; I12.9 Hypertensive chronic kidney disease with stage 1 through stage 4 chronic kidney disease, or unspecified chronic kidney disease; E11.22 Type 2 diabetes mellitus with diabetic chronic kidney disease; E11.40 Type 2 diabetes mellitus with diabetic neuropathy, unspecified; N31.9 Neuromuscular dysfunction of bladder, unspecified; Z74.01 Bed confinement status; Z87.891 Personal history of nicotine dependence; E11.69 Type 2 diabetes mellitus with other specified complication; E78.5 Hyperlipidemia, unspecified; Z57.4 Occupational exposure to toxic agents in agriculture; E03.9 Hypothyroidism, unspecified
CPT/HCPCS: 0241U; 36415; 72192; 80048; 80053; 80202; 82947; 83605; 85025; 85027; 87040; 88305; 96365; 96366; 96372-59; 96375; 96376; 99285-25; A9270; A9270-GY; J0692; J1100; J1170; J1650; J2370; J2405; J2543; J2704; J3010; J3370; J7050; J7120

== ENCOUNTER 2020-05-17 00:14 | Day surgery (SDC) | payer OTHER ==
[~2020-05-17 00:14] MED LIST changes: +ACIDOPHILUS1 EAC3 PO; +AMOCLA875 PO; +LIDOCAINE 4% TOP; +Percocet 5-3251 EACH PO; +SENN187 PO; +SILVER SULFADIA TOP; +[UNRECOGNIZED DRUG - OTHER] TOP
== END 2020-05-17 23:05 | disposition home or self-care (01) ==
LOC: WOUND 00:14
DX: I96 Gangrene, not elsewhere classified (principal); L89.154 Pressure ulcer of sacral region, stage 4; L89.894 Pressure ulcer of other site, stage 4; E11.52 Type 2 diabetes mellitus with diabetic peripheral angiopathy with gangrene; E11.40 Type 2 diabetes mellitus with diabetic neuropathy, unspecified; M10.9 Gout, unspecified; E78.5 Hyperlipidemia, unspecified; N31.9 Neuromuscular dysfunction of bladder, unspecified; I12.0 Hypertensive chronic kidney disease with stage 5 chronic kidney disease or end stage renal disease; E11.22 Type 2 diabetes mellitus with diabetic chronic kidney disease; N18.6 End stage renal disease; Z88.8 Allergy status to other drugs, medicaments and biological substances; Z79.4 Long term (current) use of insulin; Z79.899 Other long term (current) drug therapy; Z20.828 Contact with and (suspected) exposure to other viral communicable diseases
CPT/HCPCS: G0463

== ENCOUNTER 2020-05-17 10:51 | Inpatient (IN) | payer OTHER, MEDICARE ==
[~2020-05-17] VITALS: Ht 182.9 cm; Wt 95.2 kg
[~2020-05-17 10:51] MED LIST changes: -ACIDOPHILUS1 EAC3 PO; -SILVER SULFADIA TOP; -[UNRECOGNIZED DRUG - OTHER] TOP
[2020-05-17 11:27] LABS: BASOPHILS ABSOLUTE AUTO 0.04 K/mm3 (0.00-0.23); BASOPHILS PERCENT AUTO 0 % (0-2); EOSINOPHILS PERCENT AUTO 2 % (0-6); Hematocrit 31.7 % (37.0-53.0); Hemoglobin 9.8 g/dL (13.5-17.5); IMMATURE GRAN ABSOLUTE AUTO 0.26 K/mm3 (0.00-0.10); IMMATURE GRAN PERCENT AUTO 2 % (0-1); LYMPHOCYTES ABSOLUTE AUTO 1.17 K/mm3 (0.84-5.20); LYMPHOCYTES PERCENT AUTO 7 % (21-46); MONOCYTES ABSOLUTE AUTO 1.04 K/mm3 (0.16-1.47); MONOCYTES PERCENT AUTO 6 % (4-13); Mean Corpuscular HGB 29.4 pg (26.0-34.0); Mean Corpuscular HGB Conc 30.9 g/dL (31.5-36.5); Mean Corpuscular Volume 95 fL (80-100); Mean Platelet Volume 9.5 fL (9.1-12.4); NEUTROPHILS ABSOLUTE AUTO 13.86 K/mm3 (1.96-9.15); NEUTROPHILS PERCENT AUTO 83 % (41-73); Platelet Count 437 K/mm3 (150-400); RDW Coefficient Variation 13.4 % (11.7-14.2); RDW Standard Deviation 46.9 fL (35.1-46.3); Red Blood Cell Count 3.33 M/mm3 (4.30-5.90); White Blood Cell Count 16.67 K/mm3 (4.00-11.30)
[2020-05-17 11:47] LABS: Albumin, Blood 1.9 g/dL (3.4-5.0); Albumin/Globulin Ratio 0.3 (0.8-1.8); Bilirubin, Total 0.3 mg/dL (0.1-1.0); Calcium, Blood 9.7 mg/dL (8.5-10.1); Creatinine, Blood 1.68 mg/dL (0.60-1.20); Globulin, Blood 6.5 g/dL (2.2-4.0); Potassium, Blood 5.5 mmol/L (3.5-5.5); Total Protein, Blood 8.4 g/dL (6.4-8.2)
[2020-05-17 13:40] LABS: Influenza A, PCR Negative (NEGATIVE); Influenza B, PCR Negative (NEGATIVE); Resp Syncytial Virus, PCR Negative (NEGATIVE); SARS-Cov-2 (COVID-19) PCR, MMC Negative (NEGATIVE)
--- NOTE | 2020-05-17 20:32 | NUR ---
SHIFT SUMMARY: ASSUMED CARE OF PATIENT UPON HIS ARRIVAL FROM ED AT 1725. ASSISTED HIM TO STRAIGHT CATH HIMSELF HE HAD NOT DONE THIS ALL DAY. MEDICATED FOR PAIN X 1 WITH SOME RELIEF. DOES NOT REMEMBER WHEN LAST BM WAS. IS NPO FOR I&D OF SACRAL ULCERS TOMORROW MORNING.
[2020-05-18 04:56] LABS: BASOPHILS ABSOLUTE AUTO 0.04 K/mm3 (0.00-0.23); BASOPHILS PERCENT AUTO 0 % (0-2); EOSINOPHILS ABSOLUTE AUTO 0.46 K/mm3 (0.00-0.68); EOSINOPHILS PERCENT AUTO 4 % (0-6); Hematocrit 27.9 % (37.0-53.0); Hemoglobin 8.8 g/dL (13.5-17.5); IMMATURE GRAN ABSOLUTE AUTO 0.15 K/mm3 (0.00-0.10); IMMATURE GRAN PERCENT AUTO 1 % (0-1); LYMPHOCYTES ABSOLUTE AUTO 1.54 K/mm3 (0.84-5.20); LYMPHOCYTES PERCENT AUTO 13 % (21-46); MONOCYTES ABSOLUTE AUTO 1.01 K/mm3 (0.16-1.47); MONOCYTES PERCENT AUTO 9 % (4-13); Mean Corpuscular HGB Conc 31.5 g/dL (31.5-36.5); Mean Corpuscular Volume 95 fL (80-100); Mean Platelet Volume 9.6 fL (9.1-12.4); NEUTROPHILS ABSOLUTE AUTO 8.28 K/mm3 (1.96-9.15); NEUTROPHILS PERCENT AUTO 72 % (41-73); Platelet Count 354 K/mm3 (150-400); RDW Coefficient Variation 13.6 % (11.7-14.2); RDW Standard Deviation 46.8 fL (35.1-46.3); Red Blood Cell Count 2.93 M/mm3 (4.30-5.90); White Blood Cell Count 11.48 K/mm3 (4.00-11.30)
[2020-05-18 05:15] LABS: Albumin, Blood 1.8 g/dL (3.4-5.0); Albumin/Globulin Ratio 0.3 (0.8-1.8); Bilirubin, Total 0.3 mg/dL (0.1-1.0); Calcium, Blood 9.1 mg/dL (8.5-10.1); Creatinine, Blood 1.71 mg/dL (0.60-1.20); Globulin, Blood 5.6 g/dL (2.2-4.0); Total Protein, Blood 7.4 g/dL (6.4-8.2)
--- NOTE | 2020-05-18 05:16 | NUR ---
SHIFT SUMMARY LYING IN SEMI FOWLERS WITH EYES CLOSED. HAS BEEN NPO SINCE 0400HR FOR SX TODAY WITH THE EXCEPTION OF AM DOSE OF SYNTHROID. DENIES PAIN, DISCOMFORT, OR FURTHER NEEDS AT THIS TIME. SAFETY MEASURES IN PLACE. WILL CONTINUE TO MONITOR AND GIVE HAND OFF TO ONCOMING SHIFT USING SBAR.
--- NOTE | 2020-05-18 12:30 | NUR ---
History, Chart, Medications and Allergies reviewed before start of procedure. Lungs clear T/O to Auscultation. Pre-Op teaching done. Pt verbalizes understanding.
--- NOTE | 2020-05-18 14:20 | NUR ---
05/18/20 1420 Angel Santiago RN REPORTED THAT PATIENT SELF CATHED AT 0900 BUT IS CURRENTLY INCONTINENT OF URINE. GUILLEN CATH PLACED PER THIS RN AFTER INDUCTION. 1400 ML OF UNRINE IMMEDIATELY DRAINED FROM BLADDER.
--- NOTE | 2020-05-18 16:26 | NUR ---
PTIENT BACK FROM SURGERY. SUPER PLEASANT. DENIES ANY CONCERNS AT THIS TIME. HE IS VERY LETHARGIC.
--- NOTE | 2020-05-18 18:27 | NUR ---
SHIFT SUMMARY PATIENT IS ALERT AND ORIENTED. HE IS GROSS MOVEMENT ONLY IN HIS LOWER EXTREMITIES. HE WENT FOR AN I&D OF HIS BOTTOM TODAY AND HAS TWO LARGE WOUNDS ONE ON R GLUTEAL CLEFT AND ONE ON THE LATERAL ASPECT OF HIS L BUTTOCKS. THEY ARE PACKED WITH GAUZE AND COVERED BY ABD PADS.
--- NOTE | 2020-05-19 04:19 | NUR ---
SHIFT SUMMARY: VSS. AFEB. AAOX3. ABLE TO COMMUNICATE NEEDS. CONTINUOUS IV FLUIDS AND ABT INFUSED PER ORDERS. PT TURNED Q2HRS. ASSISTED W/SETUP TO SELF CATH AT HS AND WILL ASSIST PT AGAIN THIS AM. MEDICATED Q4HRS W/PRN OXYCODONE DUE TO ONGOING BILATERAL BUTTOCKS AND LE PAIN. DRESSING TO BUTTOCKS CDI. NO ACUTE CHANGES OVERNIGHT.
[2020-05-19 04:56] LABS: BASOPHILS ABSOLUTE AUTO 0.01 K/mm3 (0.00-0.23); BASOPHILS PERCENT AUTO 0 % (0-2); EOSINOPHILS PERCENT AUTO 0 % (0-6); Hematocrit 25.3 % (37.0-53.0); IMMATURE GRAN ABSOLUTE AUTO 0.07 K/mm3 (0.00-0.10); IMMATURE GRAN PERCENT AUTO 1 % (0-1); LYMPHOCYTES ABSOLUTE AUTO 0.66 K/mm3 (0.84-5.20); LYMPHOCYTES PERCENT AUTO 6 % (21-46); MONOCYTES ABSOLUTE AUTO 0.47 K/mm3 (0.16-1.47); MONOCYTES PERCENT AUTO 4 % (4-13); Mean Corpuscular HGB Conc 31.6 g/dL (31.5-36.5); Mean Corpuscular Volume 95 fL (80-100); Mean Platelet Volume 9.7 fL (9.1-12.4); NEUTROPHILS ABSOLUTE AUTO 9.54 K/mm3 (1.96-9.15); NEUTROPHILS PERCENT AUTO 89 % (41-73); Platelet Count 347 K/mm3 (150-400); RDW Coefficient Variation 13.5 % (11.7-14.2); RDW Standard Deviation 46.5 fL (35.1-46.3); Red Blood Cell Count 2.67 M/mm3 (4.30-5.90); White Blood Cell Count 10.75 K/mm3 (4.00-11.30)
[2020-05-19 05:18] LABS: Bun/Creatinine Ratio 45.2 (12.0-20.0); Calcium, Blood 8.7 mg/dL (8.5-10.1); Creatinine, Blood 1.68 mg/dL (0.60-1.20); Potassium, Blood 5.7 mmol/L (3.5-5.5)
--- NOTE | 2020-05-19 18:21 | NUR ---
SHIFT SUMMARY PATIENT DENIES ANY CONCERNS AT THIS TIME. HE HAS HAD PAIN MEDICATION. FIRST SURGICAL WOUNDS CHANGED TODAY. PICTURES TAKEN AT THIS TIME. HE DOES HAVE TUNNELING ON BOTH WOUNDS. HIS PAIN IS MANAGED WITH THE OXY. HE DOES NOT COME DOWN BELOW 8. PATIENT IS AWAITING PLACEMENT AT THE [facility] FOR WOUND CARE.
[2020-05-20 04:36] LABS: BASOPHILS ABSOLUTE AUTO 0.02 K/mm3 (0.00-0.23); BASOPHILS PERCENT AUTO 0 % (0-2); EOSINOPHILS ABSOLUTE AUTO 0.08 K/mm3 (0.00-0.68); EOSINOPHILS PERCENT AUTO 1 % (0-6); Hematocrit 24.2 % (37.0-53.0); Hemoglobin 7.3 g/dL (13.5-17.5); IMMATURE GRAN ABSOLUTE AUTO 0.11 K/mm3 (0.00-0.10); IMMATURE GRAN PERCENT AUTO 1 % (0-1); LYMPHOCYTES ABSOLUTE AUTO 2.01 K/mm3 (0.84-5.20); LYMPHOCYTES PERCENT AUTO 18 % (21-46); MONOCYTES ABSOLUTE AUTO 0.99 K/mm3 (0.16-1.47); MONOCYTES PERCENT AUTO 9 % (4-13); Mean Corpuscular HGB 28.9 pg (26.0-34.0); Mean Corpuscular HGB Conc 30.2 g/dL (31.5-36.5); Mean Corpuscular Volume 96 fL (80-100); Mean Platelet Volume 9.6 fL (9.1-12.4); NEUTROPHILS ABSOLUTE AUTO 8.28 K/mm3 (1.96-9.15); NEUTROPHILS PERCENT AUTO 72 % (41-73); Platelet Count 329 K/mm3 (150-400); RDW Coefficient Variation 13.7 % (11.7-14.2); RDW Standard Deviation 48.3 fL (35.1-46.3); Red Blood Cell Count 2.53 M/mm3 (4.30-5.90); White Blood Cell Count 11.49 K/mm3 (4.00-11.30)
--- NOTE | 2020-05-20 04:54 | NUR ---
SHIFT SUMMARY: VSS. AFEB. AAOX3. ABLE TO MAKE NEEDS KNOWN. ASSISTED PT TO STRAIGHT CATH AT MIDNIGHT, PT WANTED TO WAIT TO STRAIGHT CATH AGAIN UNTIL LATER THIS AM. VERBALIZES HESISTANCY ABOUT INCREASING CATHING FREQUENCY TO QID RECOMMENDS. REINFORCED DRESSING ON BUTTOCKS W/ADDITIONAL ABD PADS. CHANGED ABSORBENT PADS UNDER PT SEVERAL TIMES DUE TO LARGE SERO/SANG WOUND DRAINAGE. MED X 2 FOR PAIN. PT WAS ABLE TO SLEEP MORE TONIGHT. WILL CONT TO MONITOR.
[2020-05-20 05:01] LABS: Bun/Creatinine Ratio 39.8 (12.0-20.0); Creatinine, Blood 1.76 mg/dL (0.60-1.20); Potassium, Blood 5.5 mmol/L (3.5-5.5)
--- NOTE | 2020-05-20 09:53 | NUR ---
LATE NOTE FROM 05/19/20 R/T WOUND CARE THIS RN CALLED DR. MORALES ABOUT DRESSING CHANGES TO SACRAL WOUNDS. TELEPHONE ORDER TO REMOVE PACKING, CLEANSE, AND REPLACE PACKING. ASSISTED PRIMARY RN WITH WOUND CARE.
--- NOTE | 2020-05-20 17:23 | NUR ---
SHIFT SUMMARY PATIENT IS ALERT AND ORIENTED. DENIES ANY CONCERNS MINUS PAIN. HE IS ON IMMEDIATE RELEASE AND EXTENDED RELEASE OXYCODONE. PATIENT WOUNDS WERE NOT CHANGED AT THIS TIME. CHECKED THIS MORNING AND THEY ARE REINFORCED FROM WOOD TYPE FINISHER. PATIENT DOES HAVE PREVENTATIVE MEPILEX ON HIS FEET.
--- NOTE | 2020-05-21 04:25 | NUR ---
Report for Mr. Hamilton was received from MICKIE Giles. Patient received into room 340 at 0425. Patient states tolerable level of pain in areas of wounds on bottom. Pain med given as ordered
--- NOTE | 2020-05-21 04:27 | NUR ---
REPORT GIVEN TO KELL FELIPE. PT T/F TO ROOM 40 AT 0430. WILL NOTIFY PT SPOUSE OF ROOM CHANGE IN THE AM.
--- NOTE | 2020-05-21 04:28 | NUR ---
SHIFT SUMMARY: VSS. AFEB. AAOX3. MAKES NEEDS KNOWN. MEDICATED FOR PAIN W/PRN X 2. REPORTS FREQUENT INTERMITTENT NERVE PAIN TO BLE. PT STRAIGHT CATHED AT 0130 W/SET UP ASSIST, 350CC'S OUT. TURNED Q 2HRS. EXUDRY AND ABD PADS CHANGED TONIGHT DUE TO DRESSING SATURATED W/SERO-SANG DISCHARGE. ABSORBENT PADS CHANGED UNDERNEATH PT W/EACH TURN. PT A BIT IRRITABLE AT TIMES BUT IS MOSTLY COOPERATIVE AND PLEASANT W/CARES. NO ACUTE CHANGES OVERNIGHT.
--- NOTE | 2020-05-21 06:35 | NUR ---
SPOKE W/ LILIANE DE JESUS, PT'S SPOUSE. INFORMED HER OF PT ROOM CHANGE TO 340.
[2020-05-21 13:28] LABS: Source, Urine Catheter
[2020-05-21 13:36] LABS: Appearance, Urine Clear (Clear); Bilirubin, Urine Neg (Neg); Blood, Urine Neg (Neg); Color, Urine Yellow (P-Yellow); Glucose Qualitative, Urine Neg (Neg); Ketones, Urine Neg (Neg); Leukocyte Esterase, Urine 1+ (Neg); Nitrite, Urine Neg (Neg); Protein, Urine Neg (Neg); Specific Gravity, Urine 1.015 (1.003-1.022); Urobilinogen, Urine NORM (Normal)
[2020-05-21 14:01] LABS: Bacteria Rare /hpf; Red Blood Cells, Urine 0-2 /hpf (0-2); Squamous Epithelial Cells Not Seen /hpf (Few)
--- NOTE | 2020-05-21 19:16 | NUR ---
CALLED DR MORALES THIS AFTERNOON TO SEE IF HE WAS GOING TO COME CHANGE THE DRESSING, HE STATES HE ISN'T COMING, HE WANTS NURSES TO DO DAILY DRESSING CHANGES WITH KERLIX PACKING AND ABD PAD ONTOP
--- NOTE | 2020-05-21 19:25 | NUR ---
SHIFT SUMMARY SADIQ WAS PAINFUL TODAY IN HIS WOUNDS, OXYCONTIN DOSE INCREASED BY DR URIOSTEGUI WHICH SEEMED TO HELP. CBGS WNL. HE WAS HAVING INCONTINENT EPISODES THIS MORNISNG (BASELINE IS RETENTION). GUILLEN PUT IN PER DR URIOSTEGUI. SPOKE TO DR MORALES LATE AFTERNOON, HE STATES HE ISN'T COMING, HE WANTS RN TO DO DRESSING CHANGES, PLACED ORDER IN CHART, HANDED OVER TO NIGHT NURSE. POOR PO APPETITE. INFECTIOUS DISEASE CONSULT PLACED AND DOC CAME TO SEE HIM (SEE NOTE). CALL LIGHT IN REACH, REPORT GIVEN TO NIGHT NURSE
--- NOTE | 2020-05-21 20:03 | NUR ---
PHYSICIAN CORRESPONDENCE BLOOD SUGARS PRIOR TO DINNER WAS 69; ATE 30% ON DINNER. TO BE GIVEN 46 UNITS OF LONG ACTING INSULIN THIS NIGHT. NEW ORDERS FOR 20 UNITS OF LONG ACTING.
[2020-05-22 05:06] LABS: BASOPHILS ABSOLUTE AUTO 0.05 K/mm3 (0.00-0.23); BASOPHILS PERCENT AUTO 0 % (0-2); EOSINOPHILS ABSOLUTE AUTO 0.31 K/mm3 (0.00-0.68); EOSINOPHILS PERCENT AUTO 3 % (0-6); Hematocrit 26.5 % (37.0-53.0); IMMATURE GRAN ABSOLUTE AUTO 0.09 K/mm3 (0.00-0.10); IMMATURE GRAN PERCENT AUTO 1 % (0-1); LYMPHOCYTES ABSOLUTE AUTO 2.12 K/mm3 (0.84-5.20); LYMPHOCYTES PERCENT AUTO 17 % (21-46); MONOCYTES ABSOLUTE AUTO 1.04 K/mm3 (0.16-1.47); MONOCYTES PERCENT AUTO 8 % (4-13); Mean Corpuscular HGB 29.4 pg (26.0-34.0); Mean Corpuscular HGB Conc 30.2 g/dL (31.5-36.5); Mean Corpuscular Volume 97 fL (80-100); Mean Platelet Volume 9.4 fL (9.1-12.4); NEUTROPHILS ABSOLUTE AUTO 8.77 K/mm3 (1.96-9.15); NEUTROPHILS PERCENT AUTO 71 % (41-73); Platelet Count 356 K/mm3 (150-400); RDW Coefficient Variation 14.5 % (11.7-14.2); RDW Standard Deviation 50.4 fL (35.1-46.3); Red Blood Cell Count 2.72 M/mm3 (4.30-5.90); White Blood Cell Count 12.38 K/mm3 (4.00-11.30)
--- NOTE | 2020-05-22 08:16 | NUR ---
SHIFT SUMMARY A/O, ABLE TO MAKE NEEDS KNOWN. COOPERATIVE WITH CARE. ANSWERS QUESTIONS APPROPRIATELY. C/O PAIN/DISCOMFORT; MEDICATED PER EMAR. APPEARED TO REST MUCH OF THE NIGHT. DRESSING CHANGE COMPLETED THIS SHIFT. IV ABX INTERMITTENT OVERNIGHT WITHOUT COMPLICATION. NO OTHER ACUTE CHANGES NOTED. BED REMAINED IN LOWEST POSITION. CALL LIGHT AND BELONGINGS WITHIN REACH. REPORT GIVEN TO ONCOMING RN.
--- NOTE | 2020-05-22 18:39 | NUR ---
PT HAD DRESSINGS TO WOUNDS CHANGED. NO ACUTE CHANGES. PT HAD NO COMPLAINTS THIS SHIFT. CALL LIGHT WITHIN REACH.
[2020-05-23 06:03] LABS: BASOPHILS ABSOLUTE AUTO 0.04 K/mm3 (0.00-0.23); BASOPHILS PERCENT AUTO 0 % (0-2); EOSINOPHILS ABSOLUTE AUTO 0.41 K/mm3 (0.00-0.68); EOSINOPHILS PERCENT AUTO 3 % (0-6); Hematocrit 25.9 % (37.0-53.0); Hemoglobin 7.8 g/dL (13.5-17.5); IMMATURE GRAN ABSOLUTE AUTO 0.12 K/mm3 (0.00-0.10); IMMATURE GRAN PERCENT AUTO 1 % (0-1); LYMPHOCYTES PERCENT AUTO 15 % (21-46); MONOCYTES ABSOLUTE AUTO 1.03 K/mm3 (0.16-1.47); MONOCYTES PERCENT AUTO 8 % (4-13); Mean Corpuscular HGB 29.7 pg (26.0-34.0); Mean Corpuscular HGB Conc 30.1 g/dL (31.5-36.5); Mean Corpuscular Volume 99 fL (80-100); Mean Platelet Volume 9.3 fL (9.1-12.4); NEUTROPHILS ABSOLUTE AUTO 8.87 K/mm3 (1.96-9.15); NEUTROPHILS PERCENT AUTO 72 % (41-73); Platelet Count 347 K/mm3 (150-400); RDW Coefficient Variation 14.6 % (11.7-14.2); RDW Standard Deviation 51.8 fL (35.1-46.3); Red Blood Cell Count 2.63 M/mm3 (4.30-5.90); White Blood Cell Count 12.37 K/mm3 (4.00-11.30)
--- NOTE | 2020-05-23 07:52 | NUR ---
05/23/20 0600 SLEPT WELL LAST NIGHT. VITALS STABLE. REPOSITIONED Q 2 HOURS WITH 2 STAFF. DRESSING TO BUTTOCKS REMAINS INTACT. GUILLEN CATH PATENT AND DRAINING WELL.
--- NOTE | 2020-05-23 19:02 | NUR ---
ALERT. ORIENTED. DRESSINGS TO BUTTOCK CHANGED. COOPERATIVE. GUILLEN DRAINING TO GRAVITY. UNLABORED RESPIRATIONS. PATIENT HOPING TO TRANSFER TO [facility] AFTER CALI AND EVENTUALLY TO HAVE SURGERY ON WOUND. MEDICATED T/O SHIFT FOR PAIN WITH PAIN BEING TOLERABLE AFTER. WILL GIVE REPORT TO NIGHT RN
--- NOTE | 2020-05-24 04:21 | NUR ---
SHIFT SUMMARY- PT. A&O, PLEASANT AND COOPERATIVE WITH CARE. ASLEEP T/O MOST OF THE NIGHT, NO APPARENT DISTRESS NOTED. SCHEDULED MEDS AND PAIN MED GIVEN W/O DIFFICULTY. PT. HAD NO COMPLAINTS THE REST OF THE NIGHT. CALL LIGHT WITHIN REACH AND SIDE RAILS UPX2. WILL CONT TO MONITOR.
[2020-05-24 08:38] LABS: BASOPHILS ABSOLUTE AUTO 0.04 K/mm3 (0.00-0.23); BASOPHILS PERCENT AUTO 0 % (0-2); EOSINOPHILS ABSOLUTE AUTO 0.31 K/mm3 (0.00-0.68); EOSINOPHILS PERCENT AUTO 3 % (0-6); Hematocrit 27.1 % (37.0-53.0); Hemoglobin 8.1 g/dL (13.5-17.5); IMMATURE GRAN ABSOLUTE AUTO 0.09 K/mm3 (0.00-0.10); IMMATURE GRAN PERCENT AUTO 1 % (0-1); LYMPHOCYTES ABSOLUTE AUTO 1.67 K/mm3 (0.84-5.20); LYMPHOCYTES PERCENT AUTO 14 % (21-46); MONOCYTES ABSOLUTE AUTO 0.87 K/mm3 (0.16-1.47); MONOCYTES PERCENT AUTO 8 % (4-13); Mean Corpuscular HGB 29.2 pg (26.0-34.0); Mean Corpuscular HGB Conc 29.9 g/dL (31.5-36.5); Mean Corpuscular Volume 98 fL (80-100); Mean Platelet Volume 9.5 fL (9.1-12.4); NEUTROPHILS PERCENT AUTO 74 % (41-73); Platelet Count 367 K/mm3 (150-400); RDW Coefficient Variation 14.1 % (11.7-14.2); RDW Standard Deviation 50.4 fL (35.1-46.3); Red Blood Cell Count 2.77 M/mm3 (4.30-5.90); White Blood Cell Count 11.58 K/mm3 (4.00-11.30)
[2020-05-24 08:54] LABS: Bun/Creatinine Ratio 26.9 (12.0-20.0); Calcium, Blood 8.9 mg/dL (8.5-10.1); Creatinine, Blood 2.12 mg/dL (0.60-1.20)
--- NOTE | 2020-05-24 17:54 | NUR ---
HE WOKE UP THIS MORNING CONFUSED AND ANXIOUS. HE SETTLED DOWN AFTER I SPOKE WITH HIM AND THEN HE SPOKE WITH HIS ON THE PHONE. HE SLEPT A LOT OF THE MORNING. HE ATE PRETTY WELL TODAY. HIS VISITED THIS AFTERNOON. HIS WOUND CARE WAS DONE X1 FOR LARGE AMT OF DRAINAGE. SEE WOUND CARE DOCUMENTATION. HE TOLERATED IT WELL. NO FEVER. CBG'S 184, 166 AND THEN 92 AT DINNER. VSS. GUILLEN PATENT. TURNED X3 TODAY. HE SOMETIMES REFUSES TO BE TURNED.
[2020-05-25 04:54] LABS: Albumin, Blood 1.7 g/dL (3.4-5.0); Anion Gap 6 mmol/L (6-16); Blood Urea Nitrogen 68 mg/dL (8-24); Bun/Creatinine Ratio 28.5 (12.0-20.0); CO2, Blood 23 mmol/L (21-32); Calcium, Blood 9.1 mg/dL (8.5-10.1); Chloride, Blood 107 mmol/L (98-108); Creatinine, Blood 2.39 mg/dL (0.60-1.20); Glomerular Filtration Rate 28 (60-); Glucose, Blood 171 mg/dL (70-99); Potassium, Blood 5.2 mmol/L (3.5-5.5); Sodium, Blood 136 mmol/L (136-145)
--- NOTE | 2020-05-25 04:54 | NUR ---
SHIFT SUMMARY- NO ACUTE EVENTS OVERNIGHT. PT. SLEPT WELL DURING THE NIGHT, REPOSITIONED FOR COMFORT AND PRN. DRESSING TO WOUNDS C/D/I, PT. DENIED THE NEED FOR BREAKTHROUGH PAIN MED LAST NIGHT. VSS. NO ACUTE DISTRESS NOTED. PT. AWAITING TRANSFER TO THE [facility] FOR WOUND CARE. CALL LIGHT WITHIN REACH AND SIDE RAILS UPX2. WILL CONT TO MONITOR.
--- NOTE | 2020-05-25 15:31 | NUR ---
increased confusion and agitation, in rm getting ready to leave for hm, pt calmed down once she had left, spoke to dr on phone r/reduced medication, changed abx and their effect on pt confusion and agitation, talked with pt until he calmed down and closed his eyes, will continue to monitor and treat as appropriate
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
[2020-05-26 04:21] LABS: BASOPHILS ABSOLUTE AUTO 0.03 K/mm3 (0.00-0.23); BASOPHILS PERCENT AUTO 0 % (0-2); EOSINOPHILS ABSOLUTE AUTO 0.21 K/mm3 (0.00-0.68); EOSINOPHILS PERCENT AUTO 2 % (0-6); Hematocrit 24.8 % (37.0-53.0); Hemoglobin 7.6 g/dL (13.5-17.5); IMMATURE GRAN ABSOLUTE AUTO 0.04 K/mm3 (0.00-0.10); IMMATURE GRAN PERCENT AUTO 1 % (0-1); LYMPHOCYTES ABSOLUTE AUTO 1.57 K/mm3 (0.84-5.20); LYMPHOCYTES PERCENT AUTO 18 % (21-46); MONOCYTES ABSOLUTE AUTO 1.02 K/mm3 (0.16-1.47); MONOCYTES PERCENT AUTO 12 % (4-13); Mean Corpuscular HGB 29.5 pg (26.0-34.0); Mean Corpuscular HGB Conc 30.6 g/dL (31.5-36.5); Mean Corpuscular Volume 96 fL (80-100); Mean Platelet Volume 9.5 fL (9.1-12.4); NEUTROPHILS ABSOLUTE AUTO 5.94 K/mm3 (1.96-9.15); NEUTROPHILS PERCENT AUTO 67 % (41-73); Platelet Count 314 K/mm3 (150-400); RDW Standard Deviation 48.9 fL (35.1-46.3); Red Blood Cell Count 2.58 M/mm3 (4.30-5.90); White Blood Cell Count 8.81 K/mm3 (4.00-11.30)
[2020-05-26 04:40] LABS: Albumin, Blood 1.6 g/dL (3.4-5.0); Anion Gap 6 mmol/L (6-16); Blood Urea Nitrogen 77 mg/dL (8-24); Bun/Creatinine Ratio 32.9 (12.0-20.0); CO2, Blood 23 mmol/L (21-32); Calcium, Blood 9.1 mg/dL (8.5-10.1); Chloride, Blood 109 mmol/L (98-108); Creatinine, Blood 2.34 mg/dL (0.60-1.20); Glomerular Filtration Rate 29 (60-); Glucose, Blood 152 mg/dL (70-99); Magnesium, Blood 2.1 mg/dL (1.6-2.4); Phosphorus, Blood 5.1 mg/dL (2.5-4.9); Potassium, Blood 4.8 mmol/L (3.5-5.5); Sodium, Blood 138 mmol/L (136-145)
--- NOTE | 2020-05-26 06:30 | NUR ---
barratte operator summary pt a/o x1 to self. frequent forgetfulness. slept well tonight. pt denied pain overnight except for when repositioned. after pt repositioned, he went right back to sleep. vss. call light within reach. dressing in place on sacrum and glute is c.d.i. no acute changes. bed alarm in place.
--- NOTE | 2020-05-26 20:13 | NUR ---
a+o much improved over yester day, discussed with family pt medication being refused effect, also reported to dr during rounds, changed dressing, call light in reach, saline locked, rm air, bsr shared with pt and noc nurse
[2020-05-27 05:33] LABS: Albumin, Blood 1.7 g/dL (3.4-5.0); Anion Gap 6 mmol/L (6-16); Blood Urea Nitrogen 76 mg/dL (8-24); Bun/Creatinine Ratio 39.6 (12.0-20.0); CO2, Blood 24 mmol/L (21-32); Calcium, Blood 9.3 mg/dL (8.5-10.1); Chloride, Blood 111 mmol/L (98-108); Creatinine, Blood 1.92 mg/dL (0.60-1.20); Glomerular Filtration Rate 36 (60-); Glucose, Blood 146 mg/dL (70-99); Phosphorus, Blood 4.3 mg/dL (2.5-4.9); Potassium, Blood 4.6 mmol/L (3.5-5.5); Sodium, Blood 141 mmol/L (136-145)
--- NOTE | 2020-05-27 07:10 | NUR ---
ORTHOPTIST SUMMARY PT LETHAGIC ALL NIGHT, AROUSIBLE TO VOICE. SLEPT ALL NIGHT. VSS. PT SPONATEOUSLY WOKE UP THIS MORNING AROUND 0500, YELLED OUT AND WENT BACK TO SLEEP. DRESSING ON COCCYX AND GLUTE CHANGED AT 0400 WITH WET TO DRY SECURED WITH EXU-DRY DRESSING. WOUND CLEANED WITH WOUND SPRAY. PT SLEPT THROUGH DRESSING CHANGE WITH A FEW MOANS HERE AND THERE DURING THE PROCESS. REPOSITIONED FREQUENTLY. ALL ORAL MEDS WERE HELD OVERNIGHT DUE TO LETHARGY AND RISK FOR ASPIRATION. BED ALARM IN PLACE, CALL [place] WITHIN REACH. REPORT GIVEN TO AM NURSE.
[2020-05-27 10:55] LABS: PCO2 Arterial 34.1 mmHg (35-45); pH Blood Arterial 7.38 (7.35-7.45)
--- NOTE | 2020-05-27 18:51 | NUR ---
sleepy but rousable, family concerned, dr aware, abx changed, dressing changed on coccyx, will continue to monitor and treat until share bsr with pt and noc nurse, call light in place, saline locked (abx infused with no s/sx of infection or infiltration), resting in bed, no dilusions today just sleepy
[2020-05-28 05:11] LABS: BASOPHILS ABSOLUTE AUTO 0.04 K/mm3 (0.00-0.23); BASOPHILS PERCENT AUTO 0 % (0-2); EOSINOPHILS ABSOLUTE AUTO 0.21 K/mm3 (0.00-0.68); EOSINOPHILS PERCENT AUTO 2 % (0-6); Hematocrit 28.4 % (37.0-53.0); Hemoglobin 8.5 g/dL (13.5-17.5); IMMATURE GRAN ABSOLUTE AUTO 0.07 K/mm3 (0.00-0.10); IMMATURE GRAN PERCENT AUTO 1 % (0-1); LYMPHOCYTES ABSOLUTE AUTO 0.99 K/mm3 (0.84-5.20); LYMPHOCYTES PERCENT AUTO 10 % (21-46); MONOCYTES ABSOLUTE AUTO 0.76 K/mm3 (0.16-1.47); MONOCYTES PERCENT AUTO 8 % (4-13); Mean Corpuscular HGB 28.8 pg (26.0-34.0); Mean Corpuscular HGB Conc 29.9 g/dL (31.5-36.5); Mean Corpuscular Volume 96 fL (80-100); Mean Platelet Volume 9.7 fL (9.1-12.4); NEUTROPHILS PERCENT AUTO 80 % (41-73); Platelet Count 343 K/mm3 (150-400); RDW Standard Deviation 49.1 fL (35.1-46.3); Red Blood Cell Count 2.95 M/mm3 (4.30-5.90); White Blood Cell Count 10.17 K/mm3 (4.00-11.30)
[2020-05-28 05:25] LABS: Albumin, Blood 1.6 g/dL (3.4-5.0); Anion Gap 7 mmol/L (6-16); Blood Urea Nitrogen 66 mg/dL (8-24); Bun/Creatinine Ratio 41.8 (12.0-20.0); CO2, Blood 20 mmol/L (21-32); Calcium, Blood 9.4 mg/dL (8.5-10.1); Chloride, Blood 115 mmol/L (98-108); Creatinine, Blood 1.58 mg/dL (0.60-1.20); Glomerular Filtration Rate 45 (60-); Glucose, Blood 152 mg/dL (70-99); Magnesium, Blood 2.1 mg/dL (1.6-2.4); Phosphorus, Blood 4.3 mg/dL (2.5-4.9); Potassium, Blood 4.6 mmol/L (3.5-5.5); Sodium, Blood 142 mmol/L (136-145)
--- NOTE | 2020-05-28 05:48 | NUR ---
SUMMARY PT VERY SOMNOLENT FOR MOST OF SHIFT. PT WAS VERY CONFUSED EARLY IN SHIFT. PT HAS BEEN SLEEPING T/O SHIFT. THIS AM PT HAD LARGE BM NOTED. PT CLEANED AND DRESSINGS CHANGED. PT IS MORE ALERT, A/O X3. PT TAKING IN PO FLUIDS WELL THIS AM. PT CURRENTLY AWAKE AND IN NO DISTRESS. CALL LIGHT IN REACH AND BED ALARM ON.
--- NOTE | 2020-05-28 17:05 | NUR ---
SHIFT SUMMARY- PT IS ALERT, PLESANT AND COOPERATIVE. HE IS HAVING SOME FORGETFULNESS. HIS VISITED THIS AFTERNOON. DR. WOODRUFF CAME TO EVALUATE AND DETERMINED THAT THE PT COULD BENEFIT FROM HAVING A COLOSTOMY TO ALLOW THE WOUNDS TO STAY CLEAN. HE HAD A PICC LINE PLACED THIS SHIFT. HIS APPETITE IS POOR. HIS BLOOS SUGARS HAVE BEEN ELEVATED AND HE HAS BEEN RECIEVING COVERAGE. SPOKE WITH THE PALATIVE CARE NURSE ABOUT HIS CASE, SHE WILL MEET WITH HIM TOMORROW. HE MADE STATEMENTS THIS SHIFT SUCH "I CANT DO THIS ANYMORE" AND "I KNOW IM DYING". HE EXPRESSED CONCERN ABOUT HIS PAIN AND THE AMOUNT OF TIME THE WOUNDS WOULD TAKE TO HEAL. HIS GUILLEN IS PATIENT AND DRAINING. HE HAD A LOOSE LARGE STOOL THIS MORNING. HIS BED IS IN THE LOW POSITION AND CALL LIGHT IS WITHIN REACH.
--- NOTE | 2020-05-28 19:44 | NUR ---
ASSUMED CARE. AOX3, COOPERATIVE. PAIN 7/10 AFTER RECEIVING 1 TAB OF NORCO. GAVE SECOND TAB, WILL REASSESS. DRINKING GOLYTLYE FOR PROCEDURE TOMORROW. RECTAL TUBE IS IN PLACE, YELLOW LIQUID NOTED IN TUBE. CATHETER IS PATENT AND DRAINING. DENIES NAUSEA, CP, SOB, CHESTER, OR ANY OTHER SYMPTOMS. KNOWS HE IS TO BE NPO AFTER 4 AM. IV SL. DRESSINGS TO COCCYX IS INTACT AT THIS TIME. WILL CONTINUE TO MONITOR. CALL LIGHT IS IN REACH.
[2020-05-29 00:30] LABS: Influenza A, PCR Negative (NEGATIVE); Influenza B, PCR Negative (NEGATIVE); Resp Syncytial Virus, PCR Negative (NEGATIVE); SARS-Cov-2 (COVID-19) PCR, MMC Negative (NEGATIVE)
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
[2020-05-29 05:27] LABS: BASOPHILS ABSOLUTE AUTO 0.04 K/mm3 (0.00-0.23); BASOPHILS PERCENT AUTO 0 % (0-2); EOSINOPHILS ABSOLUTE AUTO 0.44 K/mm3 (0.00-0.68); EOSINOPHILS PERCENT AUTO 5 % (0-6); Hematocrit 26.6 % (37.0-53.0); Hemoglobin 8.2 g/dL (13.5-17.5); IMMATURE GRAN ABSOLUTE AUTO 0.03 K/mm3 (0.00-0.10); IMMATURE GRAN PERCENT AUTO 0 % (0-1); LYMPHOCYTES ABSOLUTE AUTO 1.99 K/mm3 (0.84-5.20); LYMPHOCYTES PERCENT AUTO 22 % (21-46); MONOCYTES ABSOLUTE AUTO 0.75 K/mm3 (0.16-1.47); MONOCYTES PERCENT AUTO 8 % (4-13); Mean Corpuscular HGB 29.4 pg (26.0-34.0); Mean Corpuscular HGB Conc 30.8 g/dL (31.5-36.5); Mean Corpuscular Volume 95 fL (80-100); Mean Platelet Volume 9.6 fL (9.1-12.4); NEUTROPHILS ABSOLUTE AUTO 5.85 K/mm3 (1.96-9.15); NEUTROPHILS PERCENT AUTO 64 % (41-73); Platelet Count 358 K/mm3 (150-400); RDW Coefficient Variation 14.1 % (11.7-14.2); RDW Standard Deviation 49.3 fL (35.1-46.3); Red Blood Cell Count 2.79 M/mm3 (4.30-5.90)
[2020-05-29 05:57] LABS: Albumin, Blood 1.7 g/dL (3.4-5.0); Albumin/Globulin Ratio 0.3 (0.8-1.8); Bilirubin, Total 0.4 mg/dL (0.1-1.0); Bun/Creatinine Ratio 40.7 (12.0-20.0); Creatinine, Blood 1.45 mg/dL (0.60-1.20); Globulin, Blood 5.6 g/dL (2.2-4.0); Potassium, Blood 4.1 mmol/L (3.5-5.5); Total Protein, Blood 7.3 g/dL (6.4-8.2)
--- NOTE | 2020-05-29 07:42 | NUR ---
RECTAL TUBE WAS REMOVED AROUND 0600 DUE TO THE AIR MATTRESS PREVENTING THE TUBE FROM DRAINING. IT CAUSES HIM TO BE SITTING IN A WHOLE CAUSING THE TUBE TO BACK FLOW AND LEAK DISPITE POSITIONING. RE-DRESSED WOUNDS AFTER CLEANSING WITH SAFE CLEANSE. WET TO DRY DRESSING PLACED AND COVERED WITH WOUND VAC CLEAR DRESSING TO PROTECT FROM STOOL. PATIENT STILL HAD ONE CUP OF THE GOLYTLE TO DRINK. STOOL IS A YELLOWISH BROWN COLOR WITH STILL CHUNKS. INFORMED DAY SHIFT RN OF SITUATION AND TO MONITOR FOR STOOL.
--- NOTE | 2020-05-29 14:11 | NUR ---
PT TRANSFERED FROM FLOOR TO [facility] VIA BED. History, Chart, Medications and Allergies reviewed before start of procedure. Lungs clear T/O to Auscultation. Patient confirms NPO status and agrees with scheduled surgery. Pre-Op teaching done. Pt verbalizes understanding. Patient States Post-Procedure ride home has been arranged.
--- NOTE | 2020-05-29 14:58 | NUR ---
05/29/20 1458 Angel Santiago PATIENT ON SCHEDULED ANTIBIOTICS. ARRIVED TO OR WITH GUILLEN CATH IN PLACE
--- NOTE | 2020-05-29 15:00 | NUR ---
Pt to OR and will be transferred to surgical floor afterwards. Will attempt to visit later this week.
--- NOTE | 2020-05-29 16:24 | NUR ---
PT LEFT THE UNIT HEADED FOR THE OR AT 1345. GAVE A DOSE OF PAIN MEDICATION BEFORE HE LEFT. AT BEDSIDE. REPORT GIVEN TO FLOWER CASTORENA ON SURGICAL FLOOR.
--- NOTE | 2020-05-29 16:26 | NUR ---
RECVD REPORT FROM MEDICAL FLOOR RN; PT CURRENTLY IN SURGERY
--- NOTE | 2020-05-30 04:29 | NUR ---
SHIFT SUMMARY: PT POD#1 FOR LAP SIGMOID COLOSTOMY AND I&D. STOMA PRODUCING A SMALL AMOUNT OF BLOODY DRG. LAP SITES C/D/I WITH WOUND GLUE. ACTIVE BT THROUGHOUT. PT BEGINNING TO COMPLAIN OF INCREASED PAIN TO LLQ. BEING MEDICATED WITH NORCO AND 50MCG OF FENTANYL PER EMAR. PT DENIES PAIN TO SACRAL AREA. DRESSING C/D/I AT THIS TIME WITH A SCANT AMOUNT OF SERIOUS DRG NOTED. PT RICHARD A SMALL AMOUNT OF CLEAR LIQUIDS OVER NIGHT. PICC TO [place] INFUSING FLUIDS TKO. IV ABX INFUSING WELL PER ORDERS. GUILLEN PATENT AND DRAINING. VSS T/O SHIFT.
--- NOTE | 2020-05-30 11:08 | NUR ---
PAIN PT RATES HIS PAIN CONSISTANTLY AT 10/10. WHEN ASKED IF HIS PAIN IS BETTER PT REPORTS HIS PAIN IMPROVES WITH PAIN MEDICATION BUT CONTINUES TO RATE PAIN AT 10/10. PT RESTS QUIETLY WHEN NOT BEING REPOSITIONED. PT DISTRACTS FROM PAIN BY TALKING TO STAFF OR WATCHING TV. AT TIME OF REASSESSMENT PT DID NOT MENTION PAIN UNTIL STAFF ASKED FOR A PAIN LEVEL. WILL CONTINUE TO PROVIDE PAIN MEDICATION NEEDED PER ORDER AND CONTINUE TO EDUCATE PT ON PAIN MANAGEMENT.
--- NOTE | 2020-05-30 15:32 | NUR ---
EDUCATION PT APPEARS TO HAVE SOME DIFFICULTY UNDERSTANDING EDUCATION. WHEN EDUCATION IS PROVIDED PT OFTEN REPEATS QUESTIONS AND DOES NOT APPEAR TO LISTEN FULLY TO EXPLANATION/EDUCATION. CONCERN THAT PT'S ANXIETY MAY BE A BARRIER TO LEARNING. PALLIATIVE CARE AND DR. GRANGER NOTIFIED OF ANXIETY.
--- NOTE | 2020-05-30 17:56 | NUR ---
DR. GRANGER NOTIFIED OF PT'S ANXIETY AND CONCERN FOR DEPRESSION.
--- NOTE | 2020-05-30 18:23 | NUR ---
Attempted to see pt this afternoon around 1430 per RN's request and prev plan. Pt is grimacing and groaning in bed. He had just been given pain medication. He stated he would prefer to talk later if possible. Planned with pt and to try to return before she left at 4pm but I was not able to do so. I case conferenced with RN. Pt has been expressing hopelessness and demonstrating nonverbal indicators of depression and anxiety with withdrawing from participation. RN states pt has difficulty expressing himself, gets frustrated. Pt is not currently on an antidepressant or anti anxiety agent. That may be helpful during this period of decreased mobility and his anxiety about his medical needs, termite control technician nature of healing he is anticipating. RN has spoken to earlier in the day regarding this. Referral made to our Structural Analysis Engineer for visit when schedule allows.
--- NOTE | 2020-05-30 18:53 | NUR ---
SHIFT SUMMARY PT IS POD#1 FROM OSTOMY PLACEMENT. PT IS PASSING FLATUS FROM STOMA. PAIN HAS BEEN DIFFICULT TO MANAGE, PO PAIN MEDICATION WAS INCREASED AND PT IS HAVING BETTER PAIN MANAGEMENT. PT REQUIRES FREQUENT REPOSITIONING. VSS. WILL MONITOR UNTIL REPORT TO ONCOMING RN.
[2020-05-31] MEDS ORDERED: ACIDOPHILUS1 EAC3 PO (01:40)
[2020-05-31] MEDS ORDERED: SILVER SULFADIA TOP (01:41)
[2020-05-31] MEDS ORDERED: [UNRECOGNIZED DRUG - OTHER] TOP (01:42)
--- NOTE | 2020-05-31 04:15 | NUR ---
SHIFT SUMMARY POD 2 SIGMOID OSTOMY AND DEBRIDEMENT PT [id number], REPORTS PAIN IN ABDOMEN, RELIEVED OFTEN WITH REPOSITIONING. PATIENT TOLERATED REPOSITIONING EVERY 1-2 HOURS, ONLY DECLINED ONE TIME. DRESSINGS REMAINED CDI UPON INSPECTION. PT TOLERATING PO WELL. BROWN LIQUID OUTPUT IN OSTOMY. PASSING FLATUS IN BAG. PLAN TO CONTINUE MONITORING OUTPUT AND REPOSITION FREQUENTLY.
[2020-05-31 05:33] LABS: Hemoglobin 7.1 g/dL (13.5-17.5); Mean Corpuscular HGB 30.1 pg (26.0-34.0); Mean Corpuscular HGB Conc 30.9 g/dL (31.5-36.5); Mean Corpuscular Volume 98 fL (80-100); Mean Platelet Volume 9.6 fL (9.1-12.4); Platelet Count 273 K/mm3 (150-400); RDW Coefficient Variation 14.7 % (11.7-14.2); RDW Standard Deviation 51.9 fL (35.1-46.3); Red Blood Cell Count 2.36 M/mm3 (4.30-5.90); White Blood Cell Count 8.54 K/mm3 (4.00-11.30)
[2020-05-31 05:55] LABS: Albumin, Blood 1.6 g/dL (3.4-5.0); Anion Gap 6 mmol/L (6-16); Blood Urea Nitrogen 66 mg/dL (8-24); Bun/Creatinine Ratio 33.5 (12.0-20.0); CO2, Blood 26 mmol/L (21-32); Calcium, Blood 8.1 mg/dL (8.5-10.1); Chloride, Blood 111 mmol/L (98-108); Creatinine, Blood 1.97 mg/dL (0.60-1.20); Glomerular Filtration Rate 35 (60-); Glucose, Blood 59 mg/dL (70-99); Phosphorus, Blood 3.6 mg/dL (2.5-4.9); Potassium, Blood 3.5 mmol/L (3.5-5.5); Sodium, Blood 143 mmol/L (136-145)
--- NOTE | 2020-05-31 08:27 | NUR ---
LOW BLOOD SUGAR PT HAD A LOW BLOOD GLUCOSE OF 48 AT 0720. PT WAS GIVEN ORANGE JUICE PER PROTOCOL AND LPN PRIVATE DUTY NOTIFIED. BLOOD GLUCOSE IMPROVED TO 102. DR. SIMPSONNG AWARE OF LOW BLOOD GLUCOSE AND ADJUSTED MEDICATIONS.
[2020-05-31 10:48] LABS: Hematocrit 23.9 % (37.0-53.0); Hemoglobin 7.4 g/dL (13.5-17.5)
--- NOTE | 2020-05-31 12:03 | NUR ---
Spiritual care intial note: Mr. Hamilton is non-temple, but was open to conversation. He told me about the loss of his son 6 months ago to cancer. He also shared with me some experiences from [facility]. He was often tearful, and responded well to theraputic listening and gentle bereavement counseling program leader. I think this did him some good, being able to talk about these things to a non-judgemental stranger. We had an easy rapport and he reported feeling hopeful by conclusion of talk. He has been facing a lot of change and appears to be processing as expected. He would certainly benefit from continued counseling program leader. Mr. Hamilton is hoping to be [place]c [place] [facility] and then [facility] at the [facility] in [place] for plastic surgery on his non-healing wound. He tells me he has things he wants to do and is not done living. [employer] services will remain available.
--- NOTE | 2020-05-31 15:48 | NUR ---
DR. WOODRUFF NOTIFIED OF INCREASED ODOR AND DARKENING IN THE WOUND BED WHEN DRESSING WAS CHANGED THIS MORNING. WILL CONTINUE TO MONITOR FOR PUSS OR ACUTE SIGNS OF INFECTION.
--- NOTE | 2020-05-31 15:49 | NUR ---
SHIFT SUMMARY PT IS POD#2 FROM PALLIATIVE OSTOMY SURGERY AND DEBRIDEMENT OF PRESSURE INJURIES. PAIN HAS BEEN MANAGED WITH PO NORCO AND FENTANYL FOR BREATHROUGH PAIN ONLY. PT IS IN BETTER SPIRITS TODAY AND VERBALIZED THE HOPE TO GET BETTER. OSTOMY APPLIANCE WAS CHANGED TODAY. SKIN PREP USED AROUND SITE, STOMA POWER PLACED AND MARIAH WAFFER PLACED BEFORE OSTOMY APPLIANCE. 2 1/4 ROUND OSTOMY APPLIANCE USED. PT IS HAVING BROWN LIQUID STOOL AND FLATUS FROM HIS STOMA. PT'S HAS VISITED. VSS. WILL MONITOR UNTIL REPORT TO ONCOMING RN.
--- NOTE | 2020-06-01 03:12 | NUR ---
FOUND OSTOMY APPLIANCE TO BE LEAKING AT START OF SHIFT, CONSULTED W/ MORE EXPERIENCED RN TO DISCUSS POSSIBLE FIX THIS WAS A NEW POUCH APPLIED DURING DAY SHIFT. ASSISSTED W/ CHANGING OUT OSTOMY APPLIANCE FOR A NEW ONE WHICH SEEMS TO BE HOLDING A GOOD SEAL. SO FAR SEAL IS STILL INTACT W/ NO LEAKS DETECTED. WILL CONTINUE TO MONITOR
[2020-06-01 04:38] LABS: Hemoglobin 6.7 g/dL (13.5-17.5); Mean Corpuscular HGB 29.5 pg (26.0-34.0); Mean Corpuscular HGB Conc 30.5 g/dL (31.5-36.5); Mean Corpuscular Volume 97 fL (80-100); Mean Platelet Volume 9.9 fL (9.1-12.4); Platelet Count 257 K/mm3 (150-400); RDW Coefficient Variation 14.3 % (11.7-14.2); RDW Standard Deviation 49.7 fL (35.1-46.3); Red Blood Cell Count 2.27 M/mm3 (4.30-5.90); White Blood Cell Count 8.45 K/mm3 (4.00-11.30)
--- NOTE | 2020-06-01 04:50 | NUR ---
SHIFT SUMMARY POD3 SACRAL ULCER I&D, A/O X4, VSS, TOLERATING PO INTAKE, DENIES N/V, ON BEDREST AND IS W/C BOUND @ BASELINE, VOIDING VIA GUILLEN DUE TO HX OF NEUROGENIC BLADDER. PAIN CONTROLLED PER EMAR, PT REPORTS HIGH LEVEL OF PAIN ON 0-10 PAIN SCALE, FACE SCALE SHOWS CONSISTENT LOWER PAIN LEVELS. NEW OSTOMY APPLIANCE APPLIED WHICH APPEARS TO BE HOLDING A GOOD SEAL. CALL LIGHT IN REACH, WILL CONTINUE TO MONITOR AND REPORT TO ONCOMING DAY RN.
[2020-06-01 04:55] LABS: Albumin, Blood 1.5 g/dL (3.4-5.0); Anion Gap 6 mmol/L (6-16); Blood Urea Nitrogen 62 mg/dL (8-24); Bun/Creatinine Ratio 40.5 (12.0-20.0); CO2, Blood 26 mmol/L (21-32); Chloride, Blood 111 mmol/L (98-108); Creatinine, Blood 1.53 mg/dL (0.60-1.20); Glomerular Filtration Rate 47 (60-); Glucose, Blood 126 mg/dL (70-99); Phosphorus, Blood 2.9 mg/dL (2.5-4.9); Sodium, Blood 143 mmol/L (136-145)
--- NOTE | 2020-06-01 08:30 | NUR ---
dr spain by to see pt dressing changed to sacrum bilat wet to dry pt getting 1 unit prbc at this time
--- NOTE | 2020-06-01 11:50 | NUR ---
repositioned pt per req 2 tab po norco given
--- NOTE | 2020-06-01 14:05 | NUR ---
pt visiting with s/o
--- NOTE | 2020-06-02 06:06 | NUR ---
SHIFT SUMMARY POD4 CHRONIC SACRAL ULCER X2 I&D, A/O X4, VSS, TOLERATING FULL LIQUID DIET, PASSING STOOL AND FLATUS THROUGH OSTOMY, OSTOMY IS MAINTAINING GOOD SEAL T/O SHIFT, PAIN WELL CONTROLLED PER EMAR, PT NON AMBULATORY @ BASELINE IN WC, TURNING Q2 TO RELIEVE PRESSURE OFF OF SACRAL ULCERS. CALL LIGHT IN REACH, WILL CONTINUE TO MONITOR AND REPORT TO ONCOMING DAY RN.
[2020-06-02 08:49] LABS: BASOPHILS ABSOLUTE AUTO 0.03 K/mm3 (0.00-0.23); BASOPHILS PERCENT AUTO 0 % (0-2); EOSINOPHILS ABSOLUTE AUTO 0.57 K/mm3 (0.00-0.68); EOSINOPHILS PERCENT AUTO 6 % (0-6); Hematocrit 29.7 % (37.0-53.0); Hemoglobin 9.3 g/dL (13.5-17.5); IMMATURE GRAN ABSOLUTE AUTO 0.07 K/mm3 (0.00-0.10); IMMATURE GRAN PERCENT AUTO 1 % (0-1); LYMPHOCYTES ABSOLUTE AUTO 1.62 K/mm3 (0.84-5.20); LYMPHOCYTES PERCENT AUTO 16 % (21-46); MONOCYTES ABSOLUTE AUTO 0.73 K/mm3 (0.16-1.47); MONOCYTES PERCENT AUTO 7 % (4-13); Mean Corpuscular HGB Conc 31.3 g/dL (31.5-36.5); Mean Corpuscular Volume 96 fL (80-100); Mean Platelet Volume 9.9 fL (9.1-12.4); NEUTROPHILS ABSOLUTE AUTO 6.86 K/mm3 (1.96-9.15); NEUTROPHILS PERCENT AUTO 69 % (41-73); Platelet Count 263 K/mm3 (150-400); RDW Coefficient Variation 14.6 % (11.7-14.2); RDW Standard Deviation 50.4 fL (35.1-46.3); White Blood Cell Count 9.88 K/mm3 (4.00-11.30)
[2020-06-02 09:19] LABS: Anion Gap 7 mmol/L (6-16); Blood Urea Nitrogen 45 mg/dL (8-24); Bun/Creatinine Ratio 36.9 (12.0-20.0); CO2, Blood 22 mmol/L (21-32); Calcium, Blood 8.8 mg/dL (8.5-10.1); Chloride, Blood 108 mmol/L (98-108); Creatinine, Blood 1.22 mg/dL (0.60-1.20); Glomerular Filtration Rate >60 (60-); Glucose, Blood 190 mg/dL (70-99); Potassium, Blood 4.4 mmol/L (3.5-5.5); Sodium, Blood 137 mmol/L (136-145)
--- NOTE | 2020-06-02 18:48 | NUR ---
SHIFT SUMMARY PT A&OX4, VSS, CBG AC/HS REQ COVERAGED. ST4 SACRAL DECUB ULCER X2, POST DEBRIDEMENT, DRESSINGS CHANGED, Q2 REPOSITION. PAIN TREATED WITH 10 MG NORCO, 50 MCG FENT PRN, FLEXERIL TID. RICHARD FULL LIQUID DIET/DECLINES MOST PROTEIN FOODS. GUILLEN PATENT & DRAINING YELLOW URINE, STAT LOCK ON, OFF FLOOR. WILL REPORT TO ONCOMING ALYSE CASTORENA.
--- NOTE | 2020-06-03 10:59 | NUR ---
TELEPHONE CALL TO DR WOODRUFF RE WHETHER A SECOND DEBRIDEMENT WILL BE PERFORMED ON THURSDAY. DR WOODRUFF STATED HE WOULD SEE PT ON THURSDAY, PROBABLY DO SECOND DEBRIDEMENT, MAKE PT NPO AT MIDNIGHT; AND PT WOULD BE READY TO GO TO [facility] ON THURSDAY. THIS INFORMATION WAS RELAYED TO HOSPITALIST.
--- NOTE | 2020-06-03 18:22 | NUR ---
SHIFT SUMMARY PT A&OX4, VSS, SACRAL DRESSINGS CHANGED TODAY X2, CDI. PAIN MANAGED WITH 20 MG NORCO Q4H, FENTANYL 50 MG Q2H. RICHARD PO FULL LIQUID DIET. PICC LINE FLUSHES AND DRAWS, LUE. REPOSITION Q2 T/O SHIFT. GUILLEN PATENT & DRAINING YELLOW URINE, STAT LOCK ON, OFF FLOOR. CBGS REQ COV. PLAN FOR NPO MIDNIGHT, I&D TOMORROW WITH DR WOODRUFF. WILL REPORT TO ONCOMING NOC RN.
--- NOTE | 2020-06-04 05:18 | NUR ---
SHIFT SUMMARY: SADIQ IS A&OX4. VSS, NO ACUTE EVENTS OVERNIGHT. HE REPORTS BASELINE PAIN OF 7/10. HE REPORTS ADEQUATE PAIN CONTROL WITH 2 TABLETS OF NORCO. HE WAS MADE NPO AT MIDNIGHT. HE IS ABLE TO MAKE HIS NEEDS KNOWN. OSTOMY TO LLQ WITH GAS AND SMALL AMOUNT LIQUID STOOL. HE DENIES ABDOMINAL PAIN, N OR V. GUILLEN PATENT. HE IS LYING IN BED WITH HIS CALL LIGHT IN REACH. WILL REPORT TO DAY SHIFT RN.
[2020-06-04 12:46] LABS: BASOPHILS ABSOLUTE AUTO 0.04 K/mm3 (0.00-0.23); BASOPHILS PERCENT AUTO 0 % (0-2); EOSINOPHILS ABSOLUTE AUTO 0.73 K/mm3 (0.00-0.68); EOSINOPHILS PERCENT AUTO 7 % (0-6); Hematocrit 29.7 % (37.0-53.0); Hemoglobin 9.3 g/dL (13.5-17.5); IMMATURE GRAN ABSOLUTE AUTO 0.06 K/mm3 (0.00-0.10); IMMATURE GRAN PERCENT AUTO 1 % (0-1); LYMPHOCYTES ABSOLUTE AUTO 2.05 K/mm3 (0.84-5.20); LYMPHOCYTES PERCENT AUTO 18 % (21-46); MONOCYTES ABSOLUTE AUTO 1.17 K/mm3 (0.16-1.47); MONOCYTES PERCENT AUTO 10 % (4-13); Mean Corpuscular HGB 30.5 pg (26.0-34.0); Mean Corpuscular HGB Conc 31.3 g/dL (31.5-36.5); Mean Corpuscular Volume 97 fL (80-100); Mean Platelet Volume 10.1 fL (9.1-12.4); NEUTROPHILS ABSOLUTE AUTO 7.18 K/mm3 (1.96-9.15); NEUTROPHILS PERCENT AUTO 64 % (41-73); Platelet Count 281 K/mm3 (150-400); RDW Coefficient Variation 14.7 % (11.7-14.2); RDW Standard Deviation 51.8 fL (35.1-46.3); Red Blood Cell Count 3.05 M/mm3 (4.30-5.90); White Blood Cell Count 11.23 K/mm3 (4.00-11.30)
[2020-06-04 12:58] LABS: Anion Gap 4 mmol/L (6-16); Blood Urea Nitrogen 51 mg/dL (8-24); Bun/Creatinine Ratio 42.1 (12.0-20.0); CO2, Blood 28 mmol/L (21-32); Calcium, Blood 9.3 mg/dL (8.5-10.1); Chloride, Blood 107 mmol/L (98-108); Creatinine, Blood 1.21 mg/dL (0.60-1.20); Glomerular Filtration Rate >60 (60-); Glucose, Blood 113 mg/dL (70-99); Magnesium, Blood 1.8 mg/dL (1.6-2.4); Potassium, Blood 4.2 mmol/L (3.5-5.5); Sodium, Blood 139 mmol/L (136-145)
--- NOTE | 2020-06-04 16:04 | NUR ---
PT TO OR AT THIS TIME
--- NOTE | 2020-06-04 16:37 | NUR ---
PT BROUGHT TO [facility] VIA BED FROM SURGICAL FLOOR. History, Chart, Medications and Allergies reviewed before start of procedure. Lungs clear T/O to Auscultation. Patient confirms NPO status and agrees with scheduled surgery.
--- NOTE | 2020-06-04 16:49 | NUR ---
06/04/20 1649 Alphonso Arredondo PT ON SCHEDULED ANTIBIOTICS
--- NOTE | 2020-06-04 18:38 | NUR ---
POST OP: REPORT RECEIVED FROM JAMEEL CODING SPEC. PT TO UNIT AT ABOUT 1710. UPON ASSESSMENT PT IS IN NO VISABLE DISTRESS, A/O, VSS. PT REPORTS SPASMS IN LEGS AND PAIN. MEDICATED PER EMAR. SURGICAL SITE WNL. OSTOMY WNL, EMPTIED. NO CONCERNS AT THIS TIME, WILL REPORT TO ALYSE CASTORENA.
--- NOTE | 2020-06-05 03:08 | NUR ---
SHIFT SUMMARY: POD 5 FOR I+D WITH OSTOMY WELL POD 1 WITH MOST RECENT I+D HE IS ALERT AND ORIENTED X4 WHILE AWAKE BUT HE HAS BEEN SLEEPING MAJORITY OF THE SHIFT. WHEN HE IS ASLEEP HE IS STILL EASILY AROUSABLE. VITALS ARE WNL AND IS ON RA. PAIN IS MANAGED WITH NORCO AND IV FENT FOR BREAKTHROUGH WELL FLEXIRIL FOR LEG CRAMPING. OSTOMY HAS BROWN LIQUID STOOL OUTPUT AND IS PASSING FLATUS. GUILLEN IS PATIENT AND DRAINING YELLOW OUTPUT. HE HAS BEEN REPOSITIONED AT LEAST EVERY 2 HOURS. PICC LINE IS ABLE TO FLUSH WITH SOME PRESSURE. HE CALLS APPROPRIATELY. CALL LIGHT IS WITHIN REACH. HE IS CURRENTLY LAYING IN BED. THE PLAN IS TO BE POSSIBLY DISCHARGED TO THE [facility] TODAY.
[2020-06-05 10:00] LABS: BASOPHILS ABSOLUTE AUTO 0.01 K/mm3 (0.00-0.23); BASOPHILS PERCENT AUTO 0 % (0-2); EOSINOPHILS ABSOLUTE AUTO 0.06 K/mm3 (0.00-0.68); EOSINOPHILS PERCENT AUTO 1 % (0-6); Hematocrit 30.4 % (37.0-53.0); Hemoglobin 9.5 g/dL (13.5-17.5); IMMATURE GRAN ABSOLUTE AUTO 0.06 K/mm3 (0.00-0.10); IMMATURE GRAN PERCENT AUTO 1 % (0-1); LYMPHOCYTES ABSOLUTE AUTO 1.27 K/mm3 (0.84-5.20); LYMPHOCYTES PERCENT AUTO 12 % (21-46); MONOCYTES ABSOLUTE AUTO 0.87 K/mm3 (0.16-1.47); MONOCYTES PERCENT AUTO 9 % (4-13); Mean Corpuscular HGB 30.3 pg (26.0-34.0); Mean Corpuscular HGB Conc 31.3 g/dL (31.5-36.5); Mean Corpuscular Volume 97 fL (80-100); Mean Platelet Volume 9.9 fL (9.1-12.4); NEUTROPHILS ABSOLUTE AUTO 8.01 K/mm3 (1.96-9.15); NEUTROPHILS PERCENT AUTO 78 % (41-73); Platelet Count 305 K/mm3 (150-400); RDW Coefficient Variation 14.6 % (11.7-14.2); RDW Standard Deviation 51.3 fL (35.1-46.3); Red Blood Cell Count 3.14 M/mm3 (4.30-5.90); White Blood Cell Count 10.28 K/mm3 (4.00-11.30)
[2020-06-05 12:43] LABS: Influenza A, PCR Negative (NEGATIVE); Influenza B, PCR Negative (NEGATIVE); Resp Syncytial Virus, PCR Negative (NEGATIVE); SARS-Cov-2 (COVID-19) PCR, MMC Negative (NEGATIVE)
--- NOTE | 2020-06-05 14:19 | NUR ---
FACILITY DISCHARGE: REPORT GIVEN TO [facility] RN NIKKI AT ABOUT 1325. TRANSPORT HERE AT 1330. PICC LINE LEFT IN PLACE PER [facility] RN REQUEST. PT TRANSFERED TO [facility] WITH EMS.
--- NOTE | 2020-06-05 14:23 | NUR ---
PT'S NOTIFIED OF TRANSFER
== END 2020-06-05 13:44 | DRG 981 ==
LOC: ER 10:51 → ERHOLD 10:52 → MEDS 10:52 → ERHOLD 10:52 → MEDS 17:13 → SURS 05-18 15:58 → MEDS 05-18 15:59 → SURS 05-29 14:51
PROVIDERS: Emergency Medicine; Internal Medicine; Surgery; ADMIT Internal Medicine
PROC: 0QB10ZZ Excision of Sacrum, Open Approach (ICD-10-PCS; principal; 2020-05-18 13:00)
PROC: 0KBP0ZZ Excision of Left Hip Muscle, Open Approach (ICD-10-PCS; 2020-05-18 13:00)
PROC: 0KBP0ZZ Excision of Left Hip Muscle, Open Approach (ICD-10-PCS; 2020-05-29)
PROC: 0D1N4Z4 Bypass Sigmoid Colon to Cutaneous, Percutaneous Endoscopic Approach (ICD-10-PCS; 2020-05-29)
PROC: 0KBP0ZZ Excision of Left Hip Muscle, Open Approach (ICD-10-PCS; 2020-06-04)
PROC: 30233N1 Transfusion of Nonautologous Red Blood Cells into Peripheral Vein, Percutaneous Approach (ICD-10-PCS; 2020-06-04)
DX: E11.52 Type 2 diabetes mellitus with diabetic peripheral angiopathy with gangrene (principal); L89.154 Pressure ulcer of sacral region, stage 4; L89.894 Pressure ulcer of other site, stage 4; I96 Gangrene, not elsewhere classified; N18.4 Chronic kidney disease, stage 4 (severe); G82.20 Paraplegia, unspecified; N17.9 Acute kidney failure, unspecified; M86.8X8 Other osteomyelitis, other site; Z20.822 Contact with and (suspected) exposure to COVID-19; L08.9 Local infection of the skin and subcutaneous tissue, unspecified; B96.20 Unspecified Escherichia coli [E. coli] as the cause of diseases classified elsewhere; E11.69 Type 2 diabetes mellitus with other specified complication; B96.5 Pseudomonas (aeruginosa) (mallei) (pseudomallei) as the cause of diseases classified elsewhere; E11.42 Type 2 diabetes mellitus with diabetic polyneuropathy; E11.21 Type 2 diabetes mellitus with diabetic nephropathy; R26.9 Unspecified abnormalities of gait and mobility; I12.9 Hypertensive chronic kidney disease with stage 1 through stage 4 chronic kidney disease, or unspecified chronic kidney disease; E11.22 Type 2 diabetes mellitus with diabetic chronic kidney disease; E78.5 Hyperlipidemia, unspecified; N31.9 Neuromuscular dysfunction of bladder, unspecified; G57.00 Lesion of sciatic nerve, unspecified lower limb; R41.82 Altered mental status, unspecified; T40.605A Adverse effect of unspecified narcotics, initial encounter; T60.3X1S Toxic effect of herbicides and fungicides, accidental (unintentional), sequela; Y92.239 Unspecified place in hospital as the place of occurrence of the external cause; Z79.899 Other long term (current) drug therapy; Z79.4 Long term (current) use of insulin; Z79.891 Long term (current) use of opiate analgesic; Z74.01 Bed confinement status; Z87.891 Personal history of nicotine dependence
CPT/HCPCS: 0241U; 36415; 36430; 36569; 36600; 80048; 80053; 80069; 81001; 82803; 82947; 83605; 83735; 85014; 85018; 85025; 85027; 85651; 86140; 86850; 86900; 86901; 86920; 87070; 87075; 87077; 87086; 87186; 87205; 88305; 93005; 93010; 96365; 96366; 96367; 96376; 97110; 97162; 99285-25; A9270; A9270-GY; C1751; G0378; J0295; J0610; J0692; J0696; J1100; J1650; J1815; J1885; J1956; J2250; J2370; J2405; J2543; J2704; J3010; J3370; J7030; J7042; J7050; J7120; P9016